=== PATIENT | male | born 1945 | race Caucasian/White ===

== ENCOUNTER 2019-05-16 17:22 | Inpatient (IN) ==
[2019-05-16 18:46] LABS: iSTAT Creatinine 1.3 mg/dl (0.6-1.3); iSTAT Hemoglobin 13.6 g/dl (14.0-18.0); iSTAT Ionized Calcium 1.13 mmol/l (1.12-1.32); iSTAT Potassium 3.8 mEq/L (3.3-5.0)
[2019-05-16 18:50] LABS: Basophils # (auto) 0.06 K/uL (0-0.2); Basophils % (auto) 0.5 %; Eosinophils # (auto) 0.25 K/uL (0-0.5); Eosinophils % (auto) 2.2 %; Hematocrit (blood only) 41.6 % (42-52); Hemoglobin 14.4 g/dL (14.0-18.0); Immature Granulocytes # (auto) 0.03 K/uL (0.00-0.02); Immature Granulocytes % (auto) 0.3 %; Lymphocytes # (auto) 2.29 K/uL (1.2-3.4); Lymphocytes % (auto) 20.2 %; Mean Corpuscular Hgb Conc 34.6 g/dL (32-36); Mean Corpuscular Volume 95.2 fL (80-100); Mean Platelet Volume 11.4 fL (7.4-10.4); Monocytes # (auto) 0.72 K/uL (0.11-0.59); Monocytes % (auto) 6.3 %; Neutrophils % (auto) 70.5 %; Platelet Count 169 K/uL (130-400); RDW Coefficient of Variation 13.9 % (11.5-14.5); RDW Standard Deviation 48.2 fL (36.4-46.3); Red Blood Count 4.37 M/uL (4.7-6.1); White Blood Count 11.35 K/uL (4.8-10.8)
[2019-05-16 19:02] LABS: INR 1.1 (0.9-1.1); Partial Thromboplastin Ratio 1.1; Partial Thromboplastin Time 29.6 Seconds (21.0-31.0); Prothrombin Time 11.4 Seconds (9.0-12.0)
[2019-05-16] MEDS ORDERED: IOVERSOL 100ml IV PRN (19:11)
[2019-05-16 19:37] LABS: Albumin Level 3.7 gm/dl (3.4-5.0); BUN Creatinine Ratio 19.9 (10-20); Calcium 8.8 mg/dl (8.5-10.1); Est GFR (African American) 69.1; Est GFR (Non-African American) 59.6; Potassium 3.8 mmol/L (3.5-5.1)
[2019-05-16 19:40] LABS: Albumin Globulin Ratio 1.2 (0.9-2); Bilirubin,Total 0.4 mg/dl (0.2-1); Globulin 3.1 gm/dl (2.5-4.0); Total Protein 6.8 gm/dl (6.4-8.2)
--- NOTE | 2019-05-16 19:40 | CT Scan Report ---
ABDOMEN AND PELVIS CT WITH IV CONTRAST CT DOSE: 494.94 mGy.cm HISTORY: Acute bloody stool. Pt c/o gi bleed TECHNIQUE: Multiaxial CT images of the abdomen and pelvis were performed following the IV administrat ion of 93 cc of Optiray 320, A dose lowering technique was utilized adhering to the principles of AL BUFFY. COMPARISON STUDY: CT abdomen and pelvis 06/04/2015 FINDINGS: 10 mm right lower lobe and 6 mm left lower lobe solid pulmonary nodules appear unchanged from the 201 5 study suggestive of benign etiology. Minimal dependent subsegmental bibasilar atelectasis. No pneum atosis or pneumoperitoneum. The imaged inferior cardiac chambers are mildly enlarged. Mildly contract ed gallbladder. 6 mm hypodense lesion of the hepatic dome is unchanged, suggestive of benign etiology . There are a few additional hypodense subcentimeter foci of the right hepatic lobe which are also weinberg ggestive of probable benign etiology. Patency of the hepatic and portal veins. Spleen, and pancreas a ppear unremarkable. Thickening of the adrenal glands, left greater than right suggest hyperplasia. Hypodense foci of the bilateral kidneys suggestive of cysts. There is mild layering calcification wit hin a large cyst of the superior pole left kidney. Punctate nonobstructing calculus of the superior p ole left kidney. There are a few punctate nonobstructing calculi of the right kidney with a 4 mm calc ulus of the inferior pole. No definite ureteral calculi or obstructive uropathy. Partially decompress ed urinary bladder with wall thickening. Prostamegaly. Small fat filled right inguinal hernia. Surgic al clips are noted about the upper scrotum with suggestion of bilateral small hydroceles. Mixed plaqu e of the abdominal aorta without aneurysm. No adenopathy. There is no bowel obstruction or bowel wall thickening identified. Colonic diverticulosis without acu te diverticulitis. Noninflamed appendix. No ascites or mesenteric inflammation. Small fat filled maral umbilical hernia, diastases of 1.5 cm. Soft tissues are unremarkable. Bones appear intact. Degenerati ve changes of the spine, pelvis and hips. IMPRESSION: 1. No acute intra-abdominal or intrapelvic abnormality. 2. Colonic diverticulosis without acute diverticulitis. 3. Normal appendix. 4. Nonobstructing bilateral nephrolithiasis. 5. Additional findings as above. Electronically signed by: Quintin Torres M.D. 05/16/2019 7:38 PM
[2019-05-16] MEDS ORDERED: AMOXICILLIN/CLAVULANATE 875 MG TAB PO ONE (19:48)
[2019-05-16 20:31] LABS: Appearance Urine Clear (Clear); Bilirubin Urine Negative (Negative); Blood Urine Negative (Negative); Color Urine Yellow; Glucose Urine UA Negative (Negative); Ketones Urine Negative (Negative); Leukocyte Esterase Urine Negative (Negative); Nitrite Urine Negative (Negative); Protein Urine Negative (Negative); Specific Gravity Urine 1.038 (1.000-1.030); Urobilinogen Urine Negative (Negative); pH Urine 5.5 (4.5-7.5)
--- NOTE | 2019-05-16 20:37 | History & Physical Report ---
Date of Service May 16, 2019 Assessment & Plan (1) Bright red blood per rectum: Admitted with a 2 days history of lower abdominal discomfort/pain With diarrhea and bright red rectal bleed this afternoon Rectal exam did show bright blood as well CT of the abdomen and pelvis did show diverticulosis but no evidence of diverticulitis The bleeding could be from diverticular bleed/ischemic colitis He had a colonoscopy done in 2017 which showed 8 mm polyp in descending colon which was removed We will monitor H&H Intravenous fluid GI consult (2) Acute diverticulitis: Complaint to have pain in the lower quadrants for the last 2 days which is colicky in nature No fever and/or chills White count is minimally elevated We will check for leg CT scan did not show definitive diverticulitis Given the history will start with intravenous Cipro and Flagyl(Unasyn is not available) (3) Ischemic colitis: History does not suggest acute ischemic colitis Peripheral pulses were palpable but feeble the lower extremities No history of peripheral vascular disease We will monitor (4) Hypertension: Blood pressure seems to be in the upper side Continue current medication for blood pressure Has sleep apnea Can use his own CPAP DVT prophylaxis SCDs Hold aspirin CODE STATUS Full History of Present Illness Chief Complaint: Diarrhea with fresh red rectal bleed this afternoon Primary Care Provider: Laverne Rodriguez DO Is a 73-year-old male with significant past medical history of centrilobular eczema, hyperlipidemia, anxiety, hypertension, BERNARDO on CPAP and cerebral atherosclerosis has been complaining of abdominal discomfort/pain involving the lower abdomen for the last 2 days. The pain seems to be colicky in nature and can last up to minutes to hours. He has had his bowel movement this afternoon and noted to have fresh blood with that bowel movement. He has been having bowel movements about 2-3 times a day. He denies any fever and/or chills, any nausea and/or vomiting. He denies any problem with urine. He does not have any cough, phlegm, shortness of breath or chest pain. No history of numbness or tingling or any weakness involving any side of the body. CAT scan of the abdomen and pelvis did not show any acute diverticulitis but given the presentation he was admitted with possible diverticulitis/ischemic colitis/diverticular bleed to medical floor. Allergies Allergy/AdvReac Type Severity Reaction Status Date / Time No Known Allergies Allergy Unverified 03/11/18 15:53 Home Medications Home Medications Medication Instructions Recorded Confirmed Type aspirin [Aspir-81] 81 mg PO DAILY 03/11/18 05/16/19 History cholecalciferol (vitamin D3) 400 unit PO DAILY 03/11/18 05/16/19 History [Vitamin D3] lactobacillus combination no.4 0 mmu cells PO DAILY 03/11/18 05/16/19 History [Probiotic] loratadine 10 mg PO DAILY 03/11/18 05/16/19 History lorazepam 0.25 mg PO TID PRN 03/11/18 05/16/19 History metoprolol succinate [Toprol XL] 50 mg PO DAILY 03/11/18 05/16/19 History multivitamin with minerals 1 tab PO DAILY 03/11/18 05/16/19 History [Multiple Vitamin-Minerals] potassium chloride 20 meq PO BID 03/11/18 05/16/19 History amlodipine 5 mg PO DAILY 05/16/19 05/16/19 History benazepril 40 mg PO DAILY 05/16/19 05/16/19 History bupropion HCl 150 mg PO DAILY 05/16/19 05/16/19 History gabapentin 100 mg PO TID 05/16/19 05/16/19 History umeclidinium-vilanterol [Anoro 1 inh INHALATION DAILY 05/16/19 05/16/19 History Ellipta] Past Med/Surg History Medical History (Updated 05/16/19 @ 20:33 by Terrance Carreno MD) Centrilobular emphysema Hematuria (Acute) Hypertension (Chronic) Hypokalemia (Acute) Post-nasal drip (Chronic) Renal colic (Acute) Sleep apnea (Chronic) Social History Feels Safe at Home: Yes Smoking Status: Current every day smoker Review of Systems Review of Systems: All systems reviewed & are unremarkable except as noted in HPI & below Physical Exam Physical Exam: Lying in bed comfortably Constitutional: well developed and well nourished; no acute distress and not ill appearing Eyes: PERRL, conjunctivae normal, anicteric sclerae ENMT: external ear and nose normal, oropharynx normal Neck: trachea midline, no thyromegaly Respiratory: normal respiratory effort; no respiratory distress Auscultation: + diminished lung sounds (Otherwise clear) Cardiovascular: Rate/Rhythm: regular rate and regular rhythm Heart Sounds: no murmur Gastrointestinal (Abdomen): Inspection/Auscultation: abdomen normal to inspection and normal bowel sounds Percussion/Palpation: + abdomen tender (Minimal tenderness on deep palpation left lower quadrant without guarding and/or rigidity) and abdomen soft Musculoskeletal: No acute arthritis involving any joints Lymphatic: no cervical or axillary lymphadenopathy Results & Data Vital Signs (Past 12 Hours) Vital Signs Temp Pulse Pulse Resp BP BP Pulse Ox 05/16/19 20:23 66 18 167/87 H 96 05/16/19 19:00 66 28 H 147/71 H 05/16/19 18:30 66 21 143/81 H 05/16/19 18:17 68 15 148/82 H 05/16/19 17:31 36.8 C 67 18 129/75 97 Laboratory Results Short CBC 05/16/19 Range/Units 18:29 WBC 11.35 H (4.8-10.8) K/uL Hgb 14.4 (14.0-18.0) g/dL Hct 41.6 L (42-52) % Plt Count 169 (130-400) K/uL BMP 05/16/19 18:29 Sodium 143 Potassium 3.8 Chloride 112 H Carbon Dioxide 27 BUN 24 H Creatinine 1.20 Glucose 98 Calcium 8.8 Liver Function 05/16/19 Range/Units 18:29 Total Bilirubin 0.4 (0.2-1) mg/dl AST 13 L (15-37) U/L ALT 23 (12-78) U/L Alkaline Phosphatase 74 (45-117) U/L Albumin 3.7 (3.4-5.0) gm/dl Medications Administered Current Inpatient Medications Ioversol (Optiray 320 100ml) 93 ml IV ONCE PRN PRN Reason: Interaction Checking Stop: 05/20/19 19:10 Last Admin: 05/16/19 19:11 Dose: 93 ml Documented by: Code Status & VTE Plan VTE Prophylaxis Plan VTE Prophylaxis will be ordered: Yes
--- NOTE | 2019-05-16 21:15 | Emergency Department Note ---
Entered by Mary Harman acting as a scribe for History of Present Illness General Chief complaint: Diarrhea Stated complaint: DIARRHEA, BLOOD IN STOOL Time Seen by Provider: 05/16/19 18:03 History of Present Illness Provider complaint: rectal bleeding Onset (ago): hour(s) 1 Pain Consistency: + other (episode) Quality: + other (rectal bleeding) Associated symptoms: + other (watery diarrhea with bright red blood and dark red blood clots in it, mild cramps, 2 other spells of diarrhea this morning but there was no blood, history of colonoscopy) Treatments prior to arrival: none The patient is a 73 year old male who presents to the ED with complaints of an episode of rectal bleeding that occurred 1 hour ago. The patient describes this episode as extremely watery diarrhea that had bright red blood and dark red blood clots in it. The patient states that this has never happened before. The patient notes that he has been having some mild abdominal cramping as well. The patient notes that he had 2 other spells of diarrhea this morning but they were not bloody. The patient states that he has had a colonoscopy in the past. The patient denies receiving any treatments prior to arrival. Home Medications Home Medications Medication Instructions Recorded Confirmed Type aspirin [Aspir-81] 81 mg PO DAILY 03/11/18 05/16/19 History cholecalciferol (vitamin D3) 400 unit PO DAILY 03/11/18 05/16/19 History [Vitamin D3] lactobacillus combination no.4 0 mmu cells PO DAILY 03/11/18 05/16/19 History [Probiotic] loratadine 10 mg PO DAILY 03/11/18 05/16/19 History lorazepam 0.25 mg PO TID PRN 03/11/18 05/16/19 History metoprolol succinate [Toprol XL] 50 mg PO DAILY 03/11/18 05/16/19 History multivitamin with minerals 1 tab PO DAILY 03/11/18 05/16/19 History [Multiple Vitamin-Minerals] potassium chloride 20 meq PO BID 03/11/18 05/16/19 History amlodipine 5 mg PO DAILY 05/16/19 05/16/19 History benazepril 40 mg PO DAILY 05/16/19 05/16/19 History bupropion HCl 150 mg PO DAILY 05/16/19 05/16/19 History gabapentin 100 mg PO TID 05/16/19 05/16/19 History umeclidinium-vilanterol [Anoro 1 inh INHALATION DAILY 05/16/19 05/16/19 History Ellipta] Allergies Allergy/AdvReac Type Severity Reaction Status Date / Time No Known Allergies Allergy Unverified 03/11/18 15:53 Past Med/Surg History Medical History (Updated 05/17/19 @ 01:25 by Evan Pichardo MD) Centrilobular emphysema Hematuria (Acute) Hypertension (Chronic) Hypokalemia (Acute) Post-nasal drip (Chronic) Renal colic (Acute) Sleep apnea (Chronic) Social History Preferred Language: Gu[place]ian Communication Ability: Effective Coding Assistant Required: No Beliefs That Will Affect Care: None Current Living Situation: Spouse Feels Safe at Home: Yes Safety Concerns: Feels Safe At This Time Smoking Status: Current every day smoker Tobacco Type: cigarettes ; Cigarettes Per Day: 8 ; Do You Dip or Chew Tobacco: No ; Hx Alcohol Use: No Hx Substance Use: No Review of Systems See HPI for pertinent positives & negatives. and A total of 10 systems reviewed and were otherwise negative Physical Exam Vital Signs Vital Signs - 24 hr 05/16/19 17:31 05/16/19 18:17 05/16/19 18:30 Temperature 36.8 C Temperature Source Oral Pulse Rate 67 68 66 Respiratory Rate 18 15 21 Respiratory Effort / Characteristics Non-Labored Respiratory Depth Normal Respiratory Pattern Regular Blood Pressure 129/75 148/82 H 143/81 H Blood Pressure Mean 93 98 107 Pulse Oximetry 97 Oxygen Delivery Method Room Air Sepsis Recent Fever Within 48 Hours No Sepsis Action Taken by Nursing No Action Required 05/16/19 19:00 Temperature Temperature Source Pulse Rate 66 Respiratory Rate 28 H Respiratory Effort / Characteristics Respiratory Depth Respiratory Pattern Blood Pressure 147/71 H Blood Pressure Mean 81 Pulse Oximetry Oxygen Delivery Method Sepsis Recent Fever Within 48 Hours Sepsis Action Taken by Nursing GENERAL: Awake, alert, well-appearing, in no acute distress HENT: Normocephalic, atraumatic. Oropharynx unremarkable. EYES: Normal conjunctiva. Sclera non-icteric. NECK: Supple. No nuchal rigidity. FROM. No JVD. RESPIRATORY: Clear to auscultation. CARDIAC: Regular rate, normal rhythm. Extremities warm and well perfused. Pulses equal. ABDOMEN: Soft, non-distended. No tenderness to palpation. No rebound or guarding. No masses. RECTAL: Dark red rectal exam, heme positive. MUSCULOSKELETAL: Chest examination reveals no tenderness. The back is symmetrical on inspection without obvious abnormality. There is no CVA tenderness to palpation. No joint edema. LOWER EXTREMITIES: Calves are equal size bilaterally and non-tender. No edema. No discoloration. NEURO: Normal sensorium. No sensory or motor deficits noted. SKIN: No rash or jaundice noted. Course Course 1815: Past medical records reviewed. The patient was evaluated in room C02B. A complete history and physical exam was performed. 195: I discussed the patient's case with Dr. Juan Carlos Rubin. He will evaluate the patient for further management. Consultations Consultation #1: I discussed the patient's case with Dr. Juan Carlos Rubin. He will evaluate the patient for further management. Time: 19:54 Administered Medications Gabapentin (Neurontin) 100 mg PO TID MARILUZ Stop: 06/15/19 21:52 Last Admin: 05/16/19 22:44 Dose: 100 mg Documented by: [id number] Sodium Chloride (Nss 1000ml) 1,000 mls @ 125 mls/hr IV .Q8H MARILUZ Stop: 05/17/19 21:44 Last Admin: 05/16/19 22:16 Dose: 125 mls/hr Documented by: [id number] Ciprofloxacin (Cipro) 400 mg in 200 mls @ 100 mls/hr IV Q12H MARILUZ; Protocol Stop: 05/26/19 21:59 Last Infusion: 05/17/19 00:40 Dose: 0 mls/hr Documented by: [id number] Admin: 05/16/19 22:36 Dose: 100 mls/hr Documented by: [id number] Metronidazole (Flagyl) 500 mg in 100 mls @ 100 mls/hr IV Q8H MARILUZ Stop: 05/26/19 21:59 Last Infusion: 05/16/19 23:55 Dose: 0 mls/hr Documented by: [id number] Admin: 05/16/19 22:47 Dose: 100 mls/hr Documented by: [id number] Ioversol (Optiray 320 100ml) 93 ml IV ONCE PRN PRN Reason: Interaction Checking Stop: 05/20/19 19:10 Last Admin: 05/16/19 19:11 Dose: 93 ml Documented by: [id number] Miscellaneous (Order Awaiting Action) 1 ea N/A QS MARILUZ Stop: 06/16/19 00:00 Last Admin: 05/16/19 23:56 Dose: Not Given Documented by: [id number] Potassium Chloride (Klor-Con M20) 20 meq PO BID MARILUZ Stop: 06/15/19 21:52 Last Admin: 05/16/19 22:44 Dose: 20 meq Documented by: [id number] Discontinued Medications Amoxicillin/Clavulanate Potassium (Augmentin 875mg) 1 tab PO NOW ONE Stop: 05/16/19 19:49 Last Admin: 05/16/19 20:24 Dose: 1 tab Documented by: [id number] Medical Decision Making Differential Diagnosis Differential diagnosis: Etiologies such as esophagitis, variceal bleed, [place], [place] tear, gastritis, peptic ulcer disease, AVM, inflammatory bowel disease, ischemia, d iverticulosis, colitis, malignancy, coagulopathy, thrombocytopenia, fissure, hemorrhoid, epistaxis , as well as others were entertained. Medical Records Attestation: I reviewed the patient's medical records. Home Medications Current Medication List: was personally reviewed by me Laboratory Data Attestation: I reviewed the patient's lab results. Result diagrams: 05/16/19 18:29 05/16/19 18:29 Lab Results 05/16/19 05/16/19 05/16/19 Range/Units 18:29 18:29 18:29 WBC 11.35 H (4.8-10.8) K/uL RBC 4.37 L (4.7-6.1) M/uL Hgb 14.4 (14.0-18.0) g/dL POC Hgb (14.0-18.0) g/dl Hct 41.6 L (42-52) % POC Hct (42-52) % MCV 95.2 (80-100) fL MCH 33.0 (25-34) pg MCHC 34.6 (32-36) g/dL RDW Std Deviation 48.2 H (36.4-46.3) fL RDW Coeff of [place] 13.9 (11.5-14.5) % Plt Count 169 (130-400) K/uL MPV 11.4 H (7.4-10.4) fL Immature Gran % (Auto) 0.3 % Neut % (Auto) 70.5 % Lymph % (Auto) 20.2 % [place] % (Auto) 6.3 % Eos % (Auto) 2.2 % Baso % (Auto) 0.5 % Immature Gran # (Auto) 0.03 H (0.00-0.02) K/uL Neut # (Auto) 8.00 H (1.4-6.5) K/uL Lymph # (Auto) 2.29 (1.2-3.4) K/uL [place] # (Auto) 0.72 H (0.11-0.59) K/uL Eos # (Auto) 0.25 (0-0.5) K/uL Baso # (Auto) 0.06 (0-0.2) K/uL PT 11.4 (9.0-12.0) Seconds INR 1.1 (0.9-1.1) APTT 29.6 (21.0-31.0) Seconds PTT Ratio 1.1 POC Sodium (135-144) mEq/L Sodium 143 (136-145) mmol/L POC Potassium (3.3-5.0) mEq/L Potassium 3.8 (3.5-5.1) mmol/L POC Chloride (101-112) mEq/L Chloride 112 H (98-107) mmol/L Carbon Dioxide 27 (21-32) mmol/L POC Total CO2 (24-31) mEq/l Anion Gap 4.0 (3-11) POC Anion Gap (16-25) mmol/L POC BUN (7-18) mg/dl BUN 24 H (7-18) mg/dl Creatinine 1.20 (0.6-1.4) mg/dl POC Creatinine (0.6-1.3) mg/dl Est Cr Clr Drug Dosing 53.0 ml/min Est GFR ( Amer) 69.1 Est GFR (Non-Af Amer) 59.6 BUN/Creatinine Ratio 19.9 (10-20) Glucose 98 (70-99) mg/dl POC Glucose (other) (70-99) mg/dl Calcium 8.8 (8.5-10.1) mg/dl POC Ioniz Calcium Diana (1.12-1.32) mmol/l Total Bilirubin 0.4 (0.2-1) mg/dl AST 13 L (15-37) U/L ALT 23 (12-78) U/L Alkaline Phosphatase 74 (45-117) U/L Total Protein 6.8 (6.4-8.2) gm/dl Albumin 3.7 (3.4-5.0) gm/dl Globulin 3.1 (2.5-4.0) gm/dl Albumin/Globulin Ratio 1.2 (0.9-2) Lipase 133 (73-393) U/L Urine Color Urine Appearance (Clear) Urine pH (4.5-7.5) Ur Specific [place] (1.000-1.030) Urine Protein (Negative) Urine Glucose (UA) (Negative) Urine Ketones (Negative) Urine Blood (Negative) Urine Nitrite (Negative) Urine Bilirubin (Negative) Urine Urobilinogen (Negative) Ur Leukocyte Esterase (Negative) Blood Type Antibody Screen 05/16/19 05/16/19 05/16/19 Range/Units 18:29 18:34 20:15 WBC (4.8-10.8) K/uL RBC (4.7-6.1) M/uL Hgb (14.0-18.0) g/dL POC Hgb 13.6 L (14.0-18.0) g/dl Hct (42-52) % POC Hct 40 L (42-52) % MCV (80-100) fL MCH (25-34) pg MCHC (32-36) g/dL RDW Std Deviation (36.4-46.3) fL RDW Coeff of [place] (11.5-14.5) % Plt Count (130-400) K/uL MPV (7.4-10.4) fL Immature Gran % (Auto) % Neut % (Auto) % Lymph % (Auto) % [place] % (Auto) % Eos % (Auto) % Baso % (Auto) % Immature Gran # (Auto) (0.00-0.02) K/uL Neut # (Auto) (1.4-6.5) K/uL Lymph # (Auto) (1.2-3.4) K/uL [place] # (Auto) (0.11-0.59) K/uL Eos # (Auto) (0-0.5) K/uL Baso # (Auto) (0-0.2) K/uL PT (9.0-12.0) Seconds INR (0.9-1.1) APTT (21.0-31.0) Seconds PTT Ratio POC Sodium 143 (135-144) mEq/L Sodium (136-145) mmol/L POC Potassium 3.8 (3.3-5.0) mEq/L Potassium (3.5-5.1) mmol/L POC Chloride 108 (101-112) mEq/L Chloride (98-107) mmol/L Carbon Dioxide (21-32) mmol/L POC Total CO2 26 (24-31) mEq/l Anion Gap (3-11) POC Anion Gap 13.0 L (16-25) mmol/L POC BUN 29 H (7-18) mg/dl BUN (7-18) mg/dl Creatinine (0.6-1.4) mg/dl POC Creatinine 1.3 (0.6-1.3) mg/dl Est Cr Clr Drug Dosing ml/min Est GFR ( Amer) Est GFR (Non-Af Amer) BUN/Creatinine Ratio (10-20) Glucose (70-99) mg/dl POC Glucose (other) 95 (70-99) mg/dl Calcium (8.5-10.1) mg/dl POC Ioniz Calcium Diana 1.13 (1.12-1.32) mmol/l Total Bilirubin (0.2-1) mg/dl AST (15-37) U/L ALT (12-78) U/L Alkaline Phosphatase (45-117) U/L Total Protein (6.4-8.2) gm/dl Albumin (3.4-5.0) gm/dl Globulin (2.5-4.0) gm/dl Albumin/Globulin Ratio (0.9-2) Lipase (73-393) U/L Urine Color Yellow Urine Appearance Clear (Clear) Urine pH 5.5 (4.5-7.5) Ur Specific [place] 1.038 H (1.000-1.030) Urine Protein Negative (Negative) Urine Glucose (UA) Negative (Negative) Urine Ketones Negative (Negative) Urine Blood Negative (Negative) Urine Nitrite Negative (Negative) Urine Bilirubin Negative (Negative) Urine Urobilinogen Negative (Negative) Ur Leukocyte Esterase Negative (Negative) Blood Type A Positive Antibody Screen NEGATIVE Imaging Data Radiologist's Impression: Radiology results as stated below per my review and the radiologist's interpretation: ABDOMEN AND PELVIS CT WITH IV CONTRAST CT DOSE: 494.94 mGy.cm HISTORY: Acute bloody stool. Pt c/o gi bleed TECHNIQUE: Multiaxial CT images of the abdomen and pelvis were performed following the IV administration of 93 cc of Optiray 320, A dose lowering technique was utilized adhering to the principles of ALARA. COMPARISON STUDY: CT abdomen and pelvis 06/04/2015 FINDINGS: 10 mm right lower lobe and 6 mm left lower lobe solid pulmonary nodules appear unchanged from the 2015 study suggestive of benign etiology. Minimal dependent subsegmental bibasilar atelectasis. No pneumatosis or pneumoperitoneum. The im aged inferior cardiac chambers are mildly enlarged. Mildly contracted gallbladder. 6 mm hypodense lesion of the hepatic dome is unchanged, suggestive of benign etiology. There are a few additional hypodense subcentimeter foci of the right hepatic lobe which are also suggestive of probable benign etiology. Patency of the hepatic and portal veins. Spleen, and pancreas appear unremarkable. Thickening of the adrenal glands, left greater than right suggest hyperplasia. Hypodense foci of the bilateral kidneys suggestive of cysts. There is mild layering calcification within a large cyst of the superior pole left kidney. Punctate nonobstructing calculus of the superior pole left kidney. There are a few punctate nonobstructing calculi of the right kidney with a 4 mm calculus of the inferior pole. No definite ureteral calculi or obstructive uropathy. Partially decompressed urinary bladder with wall thickening. Prostamegaly. Small fat filled right inguinal hernia. Surgical clips are noted about the upper scrotum with suggestion of bilateral small hydroceles. Mixed plaque of the abdominal aorta without aneurysm. No adenopathy. There is no bowel obstruction or bowel wall thickening identified. Colonic diverticulosis without acute diverticulitis. Noninflamed appendix. No ascites or mesenteric inflammation. Small fat filled periumbilical hernia, diastases of 1.5 cm. Soft tissues are unremarkable. Bones appear intact. Degenerative changes of the spine, pelvis and hips. IMPRESSION: 1. No acute intra-abdominal or intrapelvic abnormality. 2. Colonic diverticulosis without acute diverticulitis. 3. Normal appendix. 4. Nonobstructing bilateral nephrolithiasis. 5. Additional findings as above. Electronically signed by: Quintin Torres M.D. 05/16/2019 7:38 PM ECG Data Attestation: I personally reviewed and interpreted this ECG as follows: Indication: + abdominal pain Rate (beats per minute): 63 Rhythm: + normal sinus ECG Intervals/blocks: + Right Bundle branch block ECG ST segments: no ST depression and no ST elevation ECG Findings: + Other (normal axis, QTC 448) Blood Pressure Blood Pressure Findings: Elevated blood pressure Blood Pressure Disposition: further management by hospitalist MDM Narrative This is a 73-year-old male who presents emergency department over concerns that he has bright red blood per rectum. The patient has been having left lower quadrant abdominal pain therefore he was sent for CAT scan the abdomen pelvis. His hemoglobin here is stable. CAT scan is showing diverticulosis however the patient does have an elevation in his white blood cell count and I suspect that the patient may be suffering from acute diverticulitis. He was started on Augmentin here in the emergency department. I did discuss the case with the hospitalist service who did agree to admit the patient. Patient was in agreement with the treatment plan. Impression & Plan Hypertension, Bright red blood per rectum, Acute diverticulitis Discharge Plan Visit Data *Final* Discharge Date/Time: 05/16/19 21:18 Chief Complaint: Diarrhea Stated Complaint: DIARRHEA, BLOOD IN STOOL ED Provider: Evan Pichardo Discharge Problem: Hypertension, Bright red blood per rectum, Acute diverticulitis Patient Disposition: Admitted As Inpatient Discharge Instructions Interventions: ED Discharge Assessment Last Done: 05/16/19 21:18 Discharge Problem: Hypertension Qualifiers: Hypertension type: unspecified Qualified Code(s): I10 - Essential (primary) hy pertension The scribe's documentation has been prepared under my direction and personally reviewed by me in its entirety. I confirm that the note above accurately reflects all work, treatment, procedures, and medical decision making performed by me.
[2019-05-16] MEDS ORDERED: LORazepam 0.5 MG TAB PO PRN (21:53)
[2019-05-16] MEDS: SODIUM CHLORIDE 0.9% 1000ML 1,000 ML IV SCH (22:16)
[2019-05-16] MEDS: CIPROFLOXACIN 400 MG/200 ML BAG IV SCH (22:36)
[2019-05-16] MEDS: GABAPENTIN 100 MG CAP PO SCH (22:44)
[2019-05-16] MEDS: POTASSIUM CHLORIDE 20 MEQ TABCR PO SCH (22:44)
[2019-05-16] MEDS: metroNIDAZOLE 500 MG/100 ML BAG IV SCH (22:47)
[2019-05-16] MEDS: ANORO ELLIPTA~ORDER AWAITING ACTION SCH (23:56)
[2019-05-17] MEDS: metroNIDAZOLE 500 MG/100 ML BAG IV SCH ×3 (05:58→21:06)
[2019-05-17] MEDS: SODIUM CHLORIDE 0.9% 1000ML 1,000 ML IV SCH (05:58)
[2019-05-17 07:03] LABS: Basophils # (auto) 0.05 K/uL (0-0.2); Basophils % (auto) 0.5 %; Eosinophils # (auto) 0.23 K/uL (0-0.5); Eosinophils % (auto) 2.1 %; Hematocrit (blood only) 39.2 % (42-52); Hemoglobin 13.2 g/dL (14.0-18.0); Immature Granulocytes # (auto) 0.03 K/uL (0.00-0.02); Immature Granulocytes % (auto) 0.3 %; Lymphocytes # (auto) 1.91 K/uL (1.2-3.4); Lymphocytes % (auto) 17.6 %; Mean Corpuscular Hgb Conc 33.7 g/dL (32-36); Mean Corpuscular Volume 95.1 fL (80-100); Mean Platelet Volume 11.1 fL (7.4-10.4); Monocytes # (auto) 0.85 K/uL (0.11-0.59); Monocytes % (auto) 7.8 %; Neutrophils # (auto) 7.81 K/uL (1.4-6.5); Neutrophils % (auto) 71.7 %; Platelet Count 159 K/uL (130-400); RDW Coefficient of Variation 14.1 % (11.5-14.5); RDW Standard Deviation 48.9 fL (36.4-46.3); Red Blood Count 4.12 M/uL (4.7-6.1); White Blood Count 10.88 K/uL (4.8-10.8)
[2019-05-17] MEDS: ANORO ELLIPTA~ORDER AWAITING ACTION SCH ×2 (07:13→15:32)
[2019-05-17 07:34] LABS: BUN Creatinine Ratio 16.1 (10-20); Calcium 8.1 mg/dl (8.5-10.1); Est GFR (African American) 85.1; Est GFR (Non-African American) 73.4; Potassium 3.5 mmol/L (3.5-5.1)
[2019-05-17] MEDS: GABAPENTIN 100 MG CAP PO SCH ×3 (08:14→21:04)
[2019-05-17] MEDS: METOPROLOL SUCC 50MG EXT REL TAB PO SCH (08:15)
[2019-05-17] MEDS: POTASSIUM CHLORIDE 20 MEQ TABCR PO SCH ×2 (08:15→21:04)
[2019-05-17] MEDS: CHOLECALCIFEROL (VITAMIN D) 400 UNITS TABLET PO SCH (08:15)
[2019-05-17] MEDS: BuPROPion SR 150 MG TABCR PO SCH (08:15)
[2019-05-17] MEDS: AMLODIPINE BESYLATE 5 MG TAB PO SCH (08:15)
[2019-05-17] MEDS: LORATADINE 10 MG TAB PO SCH (08:15)
[2019-05-17] MEDS: ENALAPRIL MALEATE 10 MG TAB PO SCH (08:16)
[2019-05-17] MEDS: CEROVITE ADV FORMULA TAB PO SCH (08:16)
--- NOTE | 2019-05-17 10:07 | Hospitalist Progress Note ---
Date of Service May 17, 2019 Assessment & Plan (1) Bright red blood per rectum: -Admitted on 05/16/19 with a 2 days history of lower abdominal discomfort/pain and with diarrhea and bright red rectal bleed episode -as per admitting hospitalist, the Rectal exam did show bright blood as well -admission CT of the abdomen and pelvis did show diverticulosis but no evidence of diverticulitis -Hemoglobin on admission 14.4 on 05/16/19 -possible Diverticular bleed (2) Acute diverticulitis: (3) Ischemic colitis: -Because of the blood per rectum, differentials that have been considered are Acute Diverticulitis with ischemic diverticulitis consider to be less likely -patient was started on IV fluids and antibiotic of IV ciprofloxacin and IV metronidazole -Hemoglobin on admission 14.4 on 05/16/19; Hemoglobin is 13.6 on 05/17/19 -will stop IV fluids on 05/17/19, advance diet from NPO to Full Liquid diet on 05/17/19, awaiting gastroenterology consult evaluation -FOBT on 05/17/19 is pending -will plan on repeating CBC (4) Hypertension: -continue home dose amlodipine -continue home dose metoprolol -patient takes Benazepril 40 mg daily at home, will continue for now as enalapril 10 mg while in hospital for now -monitor blood pressure off IV fluids -sleep apnea Can use his own CPAP DVT prophylaxis: SCDs CODE STATUS Full Subjective Nurse sent stool sample from this AM. Patient seen and examined with daughter Dilcia Mckinley ([phone]) at bedside. Patient appears comfortable. denies abdominal pain. denies vomiting. no dizziness. no lightheadedness. no chest pain. no shortness of breath. breathing on room air. IV fluids running and IV metronidazole running during time of exam Review of Systems Review of Systems: All systems reviewed & are unremarkable except as noted in HPI & below Physical Exam Constitutional: comfortable Eyes: PERRL, conjunctivae normal, anicteric sclerae EOM intact bilaterally ENMT: external ear and nose normal, oropharynx normal Neck: normal visual inspection Respiratory: normal respiratory effort, lungs clear to auscultation Cardiovascular: Rate/Rhythm: + bradycardic Gastrointestinal (Abdomen): normal bowel sounds, soft, nontender, no hepatosplenomegaly Musculoskeletal: Head/Neck/Chest: normocephalic and head atraumatic Neurologic: PERRL, EOMI, accommodation nl, no face palsy, no dysarthria Psychiatric: A+Ox3, euthymic affect Results & Data Vital Signs (Past 12 Hours) Vital Signs Temp Pulse Pulse Resp BP Pulse Ox 05/17/19 09:00 63 05/17/19 07:00 36.7 C 65 16 158/69 H 97 05/17/19 03:00 36.6 C 66 18 152/64 H 95 05/17/19 00:25 70 05/16/19 22:58 36.5 C 68 18 147/74 H 93 (1) Hypertension Hypertension type: unspecified Qualified Code(s): I10 - Essential (primary) hypertension
[2019-05-17] MEDS ORDERED: ENALAPRIL MALEATE 10 MG TAB PO SCH (10:15)
[2019-05-17] MEDS: CIPROFLOXACIN 400 MG/200 ML BAG IV SCH ×2 (10:54→22:13)
--- NOTE | 2019-05-17 13:49 | Consultation Report ---
DATE OF CONSULTATION: 05/17/2019 REFERRED BY: Dr. Glass. I was asked by Dr. Glass to consult on this gentleman for evaluation of rectal bleeding. HISTORY OF PRESENT ILLNESS: The patient is a 73-year-old who states that yesterday he had the urge to have a bowel movement and went to the bathroom and had a liquidy red bloody stool. He had no associated abdominal pain. After the bowel movement, he had some cramping and because of this, he went to the Emergency Room. This was around 5-6 o'clock last night. He had some testing and was eventually admitted to the hospital. He has not had a bowel movement until this morning since his admission and he had one this morning that was darker maroonish in small volume. He continues to have no abdominal pain, no fevers. He denies any antibiotic use. He denies any recent travel. No one else is sick in his house. He denies ever having these episodes before. He has a history of diverticulosis. He currently feels great and is hoping to be able to eat soon. PAST MEDICAL HISTORY: I reviewed his medical records and his past medical history and his past medical history is significant for sleep apnea, hypertension, hyperlipidemia. OUTPATIENT MEDICATIONS: Include aspirin, numerous vitamins, lorazepam p.r.n., metoprolol, potassium supplement, amlodipine, benazepril, bupropion, gabapentin. SOCIAL HISTORY: Significant for smoking that is current but no significant alcohol use. ALLERGIES: He denies any drug allergies. FAMILY HISTORY: Negative for gastrointestinal disease. REVIEW OF SYSTEMS: As above, otherwise he denies any recent change in vision or hearing. He has had no pruritus, icterus or jaundice. He denies any bruising issues. He has had no fevers or heat or cold intolerance. He denies any chest pain, shortness of breath or productive cough. He has had no palpitations. He denies any dysuria. He has had no joint swelling. He denies any change in mood or seizure history. He has had no polyuria or polydipsia. He denies any new exertional symptoms or shortness of breath. PHYSICAL EXAMINATION: GENERAL: Reveals a pleasant gentleman lying in bed comfortable, in no distress. VITAL SIGNS: Most recent blood pressure is 143/74, pulse is 63, temperature is 36.7 centigrade. SKIN: Anicteric. EYES: Show anicteric sclerae. MOUTH: Clear of lesions with moist mucous membranes. NECK: Supple with no adenopathy. CHEST: Clear. HEART: Regular. ABDOMEN: Benign with good bowel sounds. There is no organomegaly, masses, rebound tenderness noted. EXTREMITIES: Warm, good distal pulses. No edema. NEUROLOGIC: He is alert and oriented x3 and grossly intact. LABORATORY DATA: Show a hemoglobin on admission of 14.4 and after receiving over a liter of fluids his hemoglobin is 13.2. BUN and creatinine are 16 and 1 respectively. Platelets are normal at 159 and CAT scan of the abdomen and pelvis with IV contrast showed colonic diverticulosis, but no signs of diverticulitis and no other sinister GI pathology. IMPRESSION: A 73-year-old gentleman with most likely a self-limited diverticular bleed. Typically ischemic colitis, presents with some degree of cramping and abdominal pain. It is reassuring that his hemoglobin is relatively stable even after hydration. He has only had 1 bowel movement since admission which is a sign that this is not active and ongoing bleeding. I do not think he needs endoscopy at this point. I would start him on a soft diet. I see no reason that he should have any stool cultures checked and I highly doubt this is infectious. If he remained stable overnight, he can be discharged from a GI perspective tomorrow.
[2019-05-17 15:35] LABS: Basophils # (auto) 0.04 K/uL (0-0.2); Basophils % (auto) 0.4 %; Eosinophils # (auto) 0.18 K/uL (0-0.5); Eosinophils % (auto) 1.9 %; Hematocrit (blood only) 37.5 % (42-52); Immature Granulocytes # (auto) 0.02 K/uL (0.00-0.02); Immature Granulocytes % (auto) 0.2 %; Lymphocytes # (auto) 1.39 K/uL (1.2-3.4); Lymphocytes % (auto) 14.5 %; Mean Corpuscular Hemoglobin 33.1 pg (25-34); Mean Corpuscular Volume 95.4 fL (80-100); Mean Platelet Volume 10.6 fL (7.4-10.4); Monocytes # (auto) 0.74 K/uL (0.11-0.59); Monocytes % (auto) 7.7 %; Neutrophils % (auto) 75.3 %; Platelet Count 147 K/uL (130-400); RDW Coefficient of Variation 13.9 % (11.5-14.5); RDW Standard Deviation 48.9 fL (36.4-46.3); Red Blood Count 3.93 M/uL (4.7-6.1); White Blood Count 9.57 K/uL (4.8-10.8)
[2019-05-17 15:52] LABS: Mean Corpuscular Hgb Conc 34.7 g/dL (32-36)
[2019-05-18] MEDS: ANORO ELLIPTA~ORDER AWAITING ACTION SCH ×2 (00:24→07:53)
[2019-05-18] MEDS ORDERED: SODIUM CHLORIDE 0.9% 1000ML 1,000 ML IV SCH (01:30)
[2019-05-18 05:28] LABS: Basophils # (auto) 0.05 K/uL (0-0.2); Basophils % (auto) 0.5 %; Eosinophils # (auto) 0.33 K/uL (0-0.5); Eosinophils % (auto) 3.3 %; Hematocrit (blood only) 37.7 % (42-52); Hemoglobin 13.3 g/dL (14.0-18.0); Immature Granulocytes # (auto) 0.01 K/uL (0.00-0.02); Immature Granulocytes % (auto) 0.1 %; Lymphocytes # (auto) 2.15 K/uL (1.2-3.4); Lymphocytes % (auto) 21.6 %; Mean Corpuscular Hemoglobin 33.3 pg (25-34); Mean Corpuscular Hgb Conc 35.3 g/dL (32-36); Mean Corpuscular Volume 94.5 fL (80-100); Mean Platelet Volume 10.9 fL (7.4-10.4); Monocytes # (auto) 0.87 K/uL (0.11-0.59); Monocytes % (auto) 8.8 %; Neutrophils # (auto) 6.53 K/uL (1.4-6.5); Neutrophils % (auto) 65.7 %; Platelet Count 150 K/uL (130-400); RDW Coefficient of Variation 13.8 % (11.5-14.5); RDW Standard Deviation 47.5 fL (36.4-46.3); Red Blood Count 3.99 M/uL (4.7-6.1); White Blood Count 9.94 K/uL (4.8-10.8)
[2019-05-18] MEDS: metroNIDAZOLE 500 MG/100 ML BAG IV SCH (05:50)
[2019-05-18] MEDS: LORATADINE 10 MG TAB PO SCH (07:54)
[2019-05-18] MEDS: POTASSIUM CHLORIDE 20 MEQ TABCR PO SCH (07:54)
[2019-05-18] MEDS: CEROVITE ADV FORMULA TAB PO SCH (07:54)
[2019-05-18] MEDS: METOPROLOL SUCC 50MG EXT REL TAB PO SCH (07:55)
[2019-05-18] MEDS: BuPROPion SR 150 MG TABCR PO SCH (07:55)
[2019-05-18] MEDS: AMLODIPINE BESYLATE 5 MG TAB PO SCH (07:55)
[2019-05-18] MEDS: CHOLECALCIFEROL (VITAMIN D) 400 UNITS TABLET PO SCH (07:55)
[2019-05-18] MEDS: GABAPENTIN 100 MG CAP PO SCH (07:55)
--- NOTE | 2019-05-18 07:57 | Hospitalist Progress Note ---
Date of Service May 18, 2019 Assessment & Plan (1) Bright red blood per rectum: -Admitted on 05/16/19 with a 2 days history of lower abdominal discomfort/pain and with diarrhea and bright red rectal bleed episode -as per admitting hospitalist, the Rectal exam did show bright blood as well -admission CT of the abdomen and pelvis did show diverticulosis but no evidence of diverticulitis -Hemoglobin on admission 14.4 on 05/16/19 -likely Diverticular bleed (2) Acute diverticulitis: -Complaint to have pain in the lower quadrants for the last 2 days which is colicky in nature on admission No fever and/or chills White count is minimally elevated We will check for leg CT scan did not show definitive diverticulitis Given the history was started with intravenous Cipro and Flagyl while inpatient starting 05/16/19 -patient was evaluated was evaluated by gastroenterology on 05/17/19 and does not consider an infectious cause of rectal bleeding -antibiotics stopped on 05/18/19 (3) Ischemic colitis: -Because of the blood per rectum, differentials that have been considered are Acute Diverticulitis with ischemic diverticulitis consider to be less likely -patient was started on IV fluids and antibiotic of IV ciprofloxacin and IV metronidazole -Fecal occult blood positive 05/17/19 -Hemoglobin on admission 14.4 on 05/16/19; Hemoglobin is 13.6 on 05/17/19, Hemoglobin remains stable above 13 on repeat CBC -as per gastroenterology service that patient likely had a self-limited diverticular bleed rather than ischemic colitis Patient is to be discharged on 05/18/19 with follow up appointment to primary care provider 05/25/2019 9:00 AM Provider Anabel Fitzgerald PA-C Department [facility] Address: [address] [place] [phone] (Patient should have repeat blood count by primary care doctor after 05/16/19 to 05/18/19 hospitalization at [facility] for likely a diverticular bleed. Patient was also evaluated by inpatient [facility] affiliated gastroenterology. Patient should be referred to gastroenterology as outpatient if any further concerns for rectal bleed ) (4) Hypertension: -continue home dose amlodipine -continue home dose metoprolol -patient takes Benazepril 40 mg daily at home, was given as substitute in the hospital as enalapril 40 mg daily, patient should resume Benazepril at home -monitor blood pressure off IV fluids -sleep apnea Can use his own CPAP DVT prophylaxis: SCDs CODE STATUS Full Discharge diagnosis: bright red blood per rectum from Diverticular Bleed, Diverticulosis (Acute Diverticulitis and Ischemic Colitis were suspected differentials but has been clinically ruled out), Hypertension Subjective Patient was denies bowel movements. hemoglobin remains stable above 13. Patient denies acute abdomen pain. No vomiting. No dizziness. No lightheadedness Review of Systems Review of Systems: All systems reviewed & are unremarkable except as noted in HPI & below Physical Exam 2 Constitutional: comfortable Eyes: PERRL, conjunctivae normal, anicteric sclerae EOM intact bilaterally ENMT: external ear and nose normal, oropharynx normal Neck: normal visual inspection Respiratory: normal respiratory effort, lungs clear to auscultation Cardiovascular: Rate/Rhythm: + bradycardic Gastrointestinal (Abdomen): normal bowel sounds, soft, nontender, no hepatosplenomegaly Musculoskeletal: Head/Neck/Chest: normocephalic and head atraumatic Neurologic: PERRL, EOMI, accommodation nl, no face palsy, no dysarthria Psychiatric: A+Ox3, euthymic affect Results & Data Vital Signs (Past 12 Hours) Vital Signs Temp Pulse Pulse Resp BP Pulse Ox 05/18/19 07:26 58 L 05/18/19 07:23 36.4 C L 65 20 159/79 H 97 05/18/19 03:00 36.5 C 61 18 153/75 H 95 05/17/19 23:33 67 05/17/19 22:36 36.8 C 68 18 149/77 H 96 (1) Hypertension Hypertension type: unspecified Qualified Code(s): I10 - Essential (primary) hypertension
--- NOTE | 2019-05-18 08:27 | Discharge Summary ---
Date of Service May 18, 2019 Admission HPI Per Admitting Provider Is a 73-year-old male with significant past medical history of centrilobular eczema, hyperlipidemia, anxiety, hypertension, BERNARDO on CPAP and cerebral atherosclerosis has been complaining of abdominal discomfort/pain involving the lower abdomen for the last 2 days. The pain seems to be colicky in nature and can last up to minutes to hours. He has had his bowel movement this afternoon and noted to have fresh blood with that bowel movement. He has been having bowel movements about 2-3 times a day. He denies any fever and/or chills, any nausea and/or vomiting. He denies any problem with urine. He does not have any cough, phlegm, shortness of breath or chest pain. No history of numbness or tingling or any weakness involving any side of the body. CAT scan of the abdomen and pelvis did not show any acute diverticulitis but given the presentation he was admitted with possible diverticulitis/ischemic colitis/diverticular bleed to medical floor. Admission Exam Per Admitting Provider Physical Exam Physical Exam: Lying in bed comfortably Constitutional: well developed and well nourished; no acute distress and not ill appearing Eyes: PERRL, conjunctivae normal, anicteric sclerae ENMT: external ear and nose normal, oropharynx normal Neck: trachea midline, no thyromegaly Respiratory: normal respiratory effort; no respiratory distress Auscultation: + diminished lung sounds (Otherwise clear) Cardiovascular: Rate/Rhythm: regular rate and regular rhythm Heart Sounds: no murmur Gastrointestinal (Abdomen): Inspection/Auscultation: abdomen normal to inspection and normal bowel sounds Percussion/Palpation: + abdomen tender (Minimal tenderness on deep palpation left lower quadrant without guarding and/or rigidity) and abdomen soft Musculoskeletal: No acute arthritis involving any joints Lymphatic: no cervical or axillary lymphadenopathy Principal Diagnosis bright red blood per rectum from Diverticular Bleed, Diverticulosis (Acute Diverticulitis and Ischemic Colitis were suspected differentials but has been clinically ruled out), Hypertension Discharge Exam Constitutional comfortable Eyes PERRL, conjunctivae normal, anicteric sclerae EOM intact bilaterally ENMT external ear and nose normal, oropharynx normal Neck normal visual inspection Respiratory normal respiratory effort, lungs clear to auscultation Cardiovascular Rate/Rhythm: + bradycardic Gastrointestinal (Abdomen) normal bowel sounds, soft, nontender, no hepatosplenomegaly Musculoskeletal Head/Neck/Chest: normocephalic and head atraumatic Neurologic PERRL, EOMI, accommodation nl, no face palsy, no dysarthria Psychiatric A+Ox3, euthymic affect Discharge Data Allergies Allergy/AdvReac Type Severity Reaction Status Date / Time No Known Allergies Allergy Unverified 03/11/18 15:53 Consultations 05/16/19 20:40 Consult Gastroenterology Routine 05/16/19 21:03 ED Decision to Admit Stat Ordered Studies 05/16/19 18:23 CT abd pelvis IV con only Stat Hospital Course (1) Bright red blood per rectum: -Admitted on 05/16/19 with a 2 days history of lower abdominal disco mfort/pain and with diarrhea and bright red rectal bleed episode -as per admitting hospitalist, the Rectal exam did show bright blood as well -admission CT of the abdomen and pelvis did show diverticulosis but no evidence of diverticulitis -Hemoglobin on admission 14.4 on 05/16/19 -likely Diverticular bleed (2) Acute diverticulitis: -Complaint to have pain in the lower quadrants for the last 2 days which is colicky in nature on admission No fever and/or chills White count is minimally elevated We will check for leg CT scan did not show definitive diverticulitis Given the history was started with intravenous Cipro and Flagyl while inpatient starting 05/16/19 -patient was evaluated was evaluated by gastroenterology on 05/17/19 and does not consider an infectious cause of rectal bleeding -antibiotics stopped on 05/18/19 (3) Ischemic colitis: -Because of the blood per rectum, differentials that have been considered are Acute Diverticulitis with ischemic diverticulitis consider to be less likely -patient was started on IV fluids and antibiotic of IV ciprofloxacin and IV metronidazole -Fecal occult blood positive 05/17/19 -Hemoglobin on admission 14.4 on 05/16/19; Hemoglobin is 13.6 on 05/17/19, Hemoglobin remains stable above 13 on repeat CBC -as per gastroenterology service that patient likely had a self-limited diverticular bleed rather than ischemic colitis Patient is to be discharged on 05/18/19 with follow up appointment to primary care provider 05/25/2019 9:00 AM Provider Anabel Fitzgerald PA-C Department [facility] Address: [address] [place] [address] (Patient should have repeat blood count by primary care doctor after 05/16/19 to 05/18/19 hospitalization at [facility] for likely a diverticular bleed. Patient was also evaluated by inpatient [facility] gastroenterology. Patient should be referred to gastroenterology as outpatient if any further concerns for rectal bleed ) (4) Hypertension: -continue home dose amlodipine -continue home dose metoprolol -patient takes Benazepril 40 mg daily at home, was given as substitute in the hospital as enalapril 40 mg daily, patient should resume Benazepril at home -monitor blood pressure off IV fluids -sleep apnea Can use his own CPAP DVT prophylaxis: SCDs CODE STATUS Full Discharge diagnosis: bright red blood per rectum from Diverticular Bleed, Diverticulosis (Acute Diverticulitis and Ischemic Colitis were suspected differentials but has been clinically ruled out), Hypertension Total Time Total Time Spent Total Time Spent (In Minutes): 40 minutes Total Time Includes: Examination of the Patient, Discharge Planning, Medication Reconciliation and Communication With Other Providers Discharge Plan Discharge Items Patient Disposition: Home - Self-Care Reason For Visit: ACUTE DIVERTICULITIS, DIVERTICULAR BLEED Discharge Diagnosis: bright red blood per rectum from Diverticular Bleed, Diverticulosis (Acute Diverticulitis and Ischemic Colitis were suspected differentials but has been clinically ruled out), Hypertension Condition on Discharge: Good Activity: Resume your previous activity Non-emergency contact: Primary Care Provider Call non-emergency contact if: you have any medication questions Follow-up/Referrals: Laverne Rodriguez DO [Primary Care Provider] - Diet: Regular Diet Comment: encourage soft diet Axel Attending Provider Instructions: 05/25/2019 9:00 AM Provider Anabel Fitzgerald PA-C Department [facility] Address: [address] [place] [address] 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 Patient was also evaluated by inpatient [facility] gastroenterology. Patient should be referred to gastroenterology as outpatient if any further concerns for rectal bleed ) Pending Studies at Discharge: No Stand-Alone Forms: My [facility], Smoking Cessation Medications and DC Order Prescriptions: Continued Probiotic 3 billion cell Capsule 0 mmu cells PO DAILY RF: 0 lorazepam 0.5 mg Tablet 0.25 mg PO TID PRN (Reason: Anxiety) RF: 0 potassium chloride 20 mEq Tablet,Er Particles/Crystals 20 meq PO BID RF: 0 metoprolol succinate [Toprol XL] 50 mg Tablet Extended Release 24 Hr 50 mg PO DAILY RF: 0 multivitamin with minerals [Multiple Vitamin-Minerals] Tablet 1 tab PO DAILY RF: 0 loratadine 10 mg Tablet 10 mg PO DAILY RF: 0 aspirin [Aspir-81] 81 mg Tablet,Delayed Release (Dr/Ec) 81 mg PO DAILY RF: 0 cholecalciferol (vitamin D3) [Vitamin D3] 400 unit Tablet 400 unit PO DAILY RF: 0 benazepril 40 mg tablet 40 mg PO DAILY RF: 0 amlodipine 5 mg tablet 5 mg PO DAILY RF: 0 Anoro Ellipta 62.5-25 mcg/actuation blister with device 1 inh inhalation DAILY RF: 0 gabapentin 100 mg capsule 100 mg PO TID RF: 0 bupropion HCl 150 mg tablet sustained-release 12 hr 150 mg PO DAILY RF: 0 Discharge Orders: Discharge Order (Routine); Ordered 05/18/19 Ordered By: Jasen Ferrera/Other Patient Handouts: Diet Low Residue, Diverticulosis Diverticulitis Admission Data Admit Date/Time: 05/16/19 20:23 Attending Provider: Jasen Glass Admit Provider: Terrance Carreno Primary Care Provider: Laverne Rodriguez Other Providers: Mirna Valadez ; Dorita Cano ; Liyah Guevara ; Fortunato Curran ; Mary Quinones ; Breana Maedra ; Danielle Robbins ; Juan Escamilla ; Yo Chavez ; Susie Cornejo ; Carole Betts ; Maria C Nugent ; Stefani Hughes ; Alice Angela ; Terrance Carreno
[2019-05-18] MEDS: ENALAPRIL MALEATE 10 MG TAB PO SCH (08:33)
== END 2019-05-18 10:33 | disposition home or self-care (01) | DRG 379 ==
LOC: ED 17:22 → 2W 20:23 → SUATTDRO 20:23 → 2W 21:18

== ENCOUNTER 2022-05-07 15:09 | Inpatient (IN) ==
[2022-05-07] MEDS ORDERED: SODIUM CHLORIDE 0.9% 1000ML 1,000 ML IV ONE (15:58)
[2022-05-07 16:00] LABS: Basophils % (auto) 0.9 %; Eosinophils # (auto) 0.14 K/uL (0-0.50); Eosinophils % (auto) 1.2 %; Hematocrit (blood only) 42.1 % (40.1-51.0); Hemoglobin 15.3 g/dl (14.0-18.0); Immature Granulocytes # (auto) 0.05 K/uL (0.00-0.02); Immature Granulocytes % (auto) 0.4 %; Lymphocytes # (auto) 1.48 K/uL (1.2-3.4); Lymphocytes % (auto) 12.8 %; Mean Corpuscular Hemoglobin 32.6 pg (25.0-34.0); Mean Corpuscular Hgb Conc 36.3 g/dL (32.0-36.0); Mean Corpuscular Volume 89.8 fL (80.0-100.0); Mean Platelet Volume 10.9 fL (9.4-12.4); Monocytes # (auto) 0.64 K/uL (0.24-0.82); Monocytes % (auto) 5.5 %; Neutrophils # (auto) 9.17 K/uL (1.4-6.5); Neutrophils % (auto) 79.2 %; Platelet Count 227 K/uL (130-400); RDW Coefficient of Variation 13.3 % (11.5-14.5); RDW Standard Deviation 43.5 fL (36.4-46.3); Red Blood Count 4.69 M/uL (4.63-6.08); White Blood Count 11.58 K/ul (4.8-10.8)
--- NOTE | 2022-05-07 16:01 | Emergency Department Note ---
Impression & Plan Generalized weakness, Acute confusion, Slurred speech, Hypertensive urgency ED Provider Note Name: PÉREZ SEO Age: 76 Sex: M Arrives Via: Walk-In Informant: Patient, family ED Provider: Livan Smith MD Chief Complaint: confusion Impression: As per impressions above Medical Decision Makin-year-old gentleman with a history of hypertension, anxiety, other comorbidities arrives for evaluation of some confusion, slurred speech not acting himself this morning. He actually has had some slurred speech last few mornings per his . He has been treated for a sinus infection over the last 10 days. He was seen at [facility] urgent care who advised to come to the ER for further evaluation given the symptoms. On arrival patient is in no distress he is able to ambulate without difficulty blood pressure is a bit on the high side. He had extensive work-up including CT head and labs are remarkable for mildly elevated creatinine from baseline as well as an elevated troponin of 30. He has no chest pain, shortness of breath or ACS symptoms. I suspect troponin elevation is more likely due to renal as opposed to acute coronary or aortic issue. He has a negative CT head. There is no clear evidence of infectious etiology at this time. Even after some time in the ER blood pressure has not really trended down at all. He was given a dose of IV labetalol too much improvement. He is without headache or neurologic symptoms at this time thus I consulted hospitalist for further management. Without any acute ischemic findings/strokelike findings on examination we will hold off on any further antiplatelet or anticoagulation. [] Prior Medical Record and Triage/Nursing Notes reviewed by Me Additional history obtained from chart & family Differentials:Infection, dehydration, metabolic abnormality, hyp o/hyperglycemia, electrolyte disturbance, anemia, hypoxia, cardiac sources, intracerebral event, toxicologic, neurologic, as well as other pathologies. Vital Signs: reviewed and remarkable for HTN Interventions: labetalol 10mg iv, nss bolus Labs:Reviewed and remarkable for mild cr elevation, mild trop elevation Imaging:ct head wo con no acute findings per radiology EKG:As per my interpretation. Indication hypertension, confusion. Sinus tach at 103 bpm with a bifascicular block. There is no ectopy nor ischemia appreciated. Other than rate similar to EKG from May 16, 2019. Cardiac/Tele Monitoring: Cardiac Monitoring: An Order was placed for continuous cardiac monitoring. The monitor shows a rate of [] with a [normal sinus] rhythm. Consults:Dr Danitza Rodney Hospitalist Plan: Disposition:Hospitalization. Condition: Good History of Present Illness:74-year-old gentleman arrives for evaluation of confusion. Patient has been dealing with a sinus infection for the last 2 weeks and been started on Augmentin a week and a half ago. He is on his last day of antibiotics today. notes that in the mornings the last few days he has had some slurred speech that has been much sleepier than normal. Symptoms seem to come and go. Today though he has been confused all day having trouble remembering things that earlier was unable to even use a cell phone. He was seen over at urgent care who sent him here for further evaluation. Patient states that he feels all right other than a little bit lightheaded with standing. No specific spinning but does feel "dizzy." Denies any falls or head injuries. Denies any nausea, vomiting, chest pain, shortness of breath, syncope, abdominal pain, back pain, urinary/bowel symptoms, leg swelling, bruising or other concerning signs or symptoms. Laying down does seem to make a bit better. He has not had a good appetite recently. ROS: See above HPI for pertinent positives & negatives. A total of 10 systems reviewed and were otherwise negative. Past Medical History:See Below Past Surgical History:See Below Family History:See Below Social History:See Below quit smoking 1 month ago after 50 yrs. Home Medications:See Below Allergies:nkda Vitals:Blood Pressure: 168/99, Pulse 107, RR 18, T 36.3C, O2 96% on RA Physical Exam: GENERAL: Patient is dehydrated/elderly/frail appearing and in minimal distress. EYES: No scleral icterus, unremarkable pupils. ENT: Mucous membranes dry, no nasal congestion. NECK: No masses appreciated, nomeningismus, trachea is midline. RESPIRATORY: No dyspnea. Clear to auscultation and equal bilaterally. No wheeze, no rhonchi. CARDIOVASCULAR: Regular rate and rhythm.No murmurs, rubs, gallops appreciated. GASTROINTESTINAL: Abdomen soft, non-tender, no peritonitis.Bowel sounds po sitive.No masses appreciated. BACK: No midline tenderness, no CVA tenderness EXTREMITIES: Normal motion all extremities, no cyanosis, no edema. NEUROLOGIC: Alert and oriented, no acute motor or sensory deficits, no focal weakness, cranial nerves grossly intact. SKIN: No rash, no jaundice, no diaphoresis. PSYCH: Appropriate GCS: 15 ED Course: Times/Reassessments: Patient without further symptoms stable though blood pressure remains quite high despite labetalol. He and family comfortable with plan for hospitalization for further management Livan Smith MD Past Med/Surg History Medical History Centrilobular emphysema Hematuria Hypertension Hypokalemia Post-nasal drip Renal colic Sleep apnea Social History Smoking Status: Former smoker Cigarettes Per Day: 8; Hx Alcohol Use: No Hx Substance Use: No Preferred Language: Dutch Communication Ability: Effective Roundhouse Supervisor Required: No Beliefs That Will Affect Care: None Current Living Situation: Spouse Feels Safe at Home: Yes Safety Concerns: Feels Safe At This Time Assistive Devices: CPAP Allergies Allergies Allergy/AdvReac Type Severity Reaction Status Date / Time No Known Allergies Allergy Verified 05/07/22 16:31 Home Meds Home Medications Medication Instructions Recorded Confirmed metoprolol succinate 50 mg 50 mg PO QPM 03/11/18 05/07/22 tablet,extended release 24 hr (Toprol XL) multivitamin with minerals 1 tab PO DAILY 03/11/18 05/07/22 (Multiple Vitamin-Minerals tablet) benazepril 40 mg tablet 40 mg PO DAILY 05/16/19 05/07/22 bupropion HCl 150 mg tablet,12 hr 150 mg PO BID 05/16/19 05/07/22 sustained-release gabapentin 100 mg capsule 100 mg PO TID 05/16/19 05/07/22 amiloride 5 mg tablet 5 mg PO QAM 05/07/22 05/07/22 cholecalciferol (vitamin D3) 50 50 mcg PO DAILY 05/07/22 05/07/22 mcg (2,000 unit) capsule (Vitamin D3) cholestyramine (with sugar) 4 gram 1 ea PO BID PRN Diarrhea 05/07/22 05/07/22 powder for susp in a packet fluticasone fur. 100 mcg-umeclid 1 inh inhalation DAILY 05/07/22 05/07/22 62.5 mcg-vilant 25 mcg inhalat.powder (Trelegy Ellipta) fluticasone propionate 50 2 spray intranasal QPM 05/07/22 05/07/22 mcg/actuation nasal spray,suspension lorazepam 0.5 mg tablet 0.5 mg PO TID PRN Panic Attack(S) 05/07/22 05/07/22 Results & Data (ED) Vital Signs Vital Signs - 24 hr 05/07/22 18:31 05/07/22 18:31 Pulse Rate 98 H Respiratory Rate 16 Blood Pressure 180/135 H Blood Pressure Mean 150 Laboratory Data Result diagrams: 05/08/22 07:28 05/08/22 07:28 Lab Results 05/07/22 05/07/22 05/07/22 Range/Units 15:39 15:39 15:39 WBC 11.58 H (4.8-10.8) K/ul RBC 4.69 (4.63-6.08) M/uL Hgb 15.3 (14.0-18.0) g/dl Hct 42.1 (40.1-51.0) % MCV 89.8 (80.0-100.0) fL MCH 32.6 (25.0-34.0) pg MCHC 36.3 H (32.0-36.0) g/dL RDW Std Deviation 43.5 (36.4-46.3) fL RDW Coeff of Arben 13.3 (11.5-14.5) % Plt Count 227 (130-400) K/uL MPV 10.9 (9.4-12.4) fL Immature Gran % (Auto) 0.4 % Neut % (Auto) 79.2 % Lymph % (Auto) 12.8 % Hitchcock % (Auto) 5.5 % Eos % (Auto) 1.2 % Baso % (Auto) 0.9 % Neut # (Auto) 9.17 H (1.4-6.5) K/uL Lymph # (Auto) 1.48 (1.2-3.4) K/uL Hitchcock # (Auto) 0.64 (0.24-0.82) K/uL Eos # (Auto) 0.14 (0-0.50) K/uL Baso # (Auto) 0.10 (0-0.2) K/uL Immature Gran # (Auto) 0.05 H (0.00-0.02) K/uL Sodium 142 (136-145) mmol/L Potassium 3.9 (3.5-5.1) mmol/L Chloride 108 H (98-107) mmol/L Carbon Dioxide 23 (21-32) mmol/L Anion Gap 11 (3-11) BUN 30 H (6-23) mg/dl Creatinine 1.90 H (0.6-1.4) mg/dl Est Cr Clr Drug Dosing 32.0 ml/min Est GFR ( Amer) 38.8 ml/min Est GFR (Non-Af Amer) 33.5 ml/min BUN/Creatinine Ratio 15.8 (10-20) Glucose 119 H (70-99(Fasting)) mg/dl Calcium 9.7 (8.5-10.1) mg/dl Total Bilirubin 0.9 (0.2-1.0) mg/dl AST 16 (13-39) U/L ALT 14 (7-52) U/L Alkaline Phosphatase 85 (34-104) U/L Troponin I High Sens (0-20) pg/ml Total Protein 7.3 (6.0-8.3) gm/dl Albumin 4.3 (3.4-5.0) gm/dl Globulin 3.0 (2.5-4.0) gm/dl Albumin/Globulin Ratio 1.4 (0.9-2) Procalcitonin (0-0.5) ng/ml Urine Color Urine Appearance (Clear) Urine pH (4.5-7.5) Ur Specific Gloster (1.000-1.030) Urine Protein (Negative) Urine Glucose (UA) (Negative) Urine Ketones (Negative) Urine Blood (Negative) Urine Nitrite (Negative) Urine Bilirubin (Negative) Urine Urobilinogen (Negative) Ur Leukocyte Esterase (Negative) Urine WBC (Auto) (0-5) /hpf Urine RBC (Auto) (0-4) /hpf U Hyaline Cast (Auto) (0-5) /lpf U Epithel Cells (Auto) (0-5) /lpf Urine Bacteria (Auto) (Negative) SARS-CoV-2 (PCR) NEGATIVE (Negative) Influenza Type A (PCR) Negative (Neg) Influenza Type B (PCR) Negative (Neg) RSV (RT-PCR) Negative (Neg) 05/07/22 05/07/22 05/07/22 Range/Units 15:39 15:39 16:54 WBC (4.8-10.8) K/ul RBC (4.63-6.08) M/uL Hgb (14.0-18.0) g/dl Hct (40.1-51.0) % MCV (80.0-100.0) fL MCH (25.0-34.0) pg MCHC (32.0-36.0) g/dL RDW Std Deviation (36.4-46.3) fL RDW Coeff of Arben (11.5-14.5) % Plt Count (130-400) K/uL MPV (9.4-12.4) fL Immature Gran % (Auto) % Neut % (Auto) % Lymph % (Auto) % Hitchcock % (Auto) % Eos % (Auto) % Baso % (Auto) % Neut # (Auto) (1.4-6.5) K/uL Lymph # (Auto) (1.2-3.4) K/uL Hitchcock # (Auto) (0.24-0.82) K/uL Eos # (Auto) (0-0.50) K/uL Baso # (Auto) (0-0.2) K/uL Immature Gran # (Auto) (0.00-0.02) K/uL Sodium (136-145) mmol/L Potassium (3.5-5.1) mmol/L Chloride (98-107) mmol/L Carbon Dioxide (21-32) mmol/L Anion Gap (3-11) BUN (6-23) mg/dl Creatinine (0.6-1.4) mg/dl Est Cr Clr Drug Dosing ml/min Est GFR ( Amer) ml/min Est GFR (Non-Af Amer) ml/min BUN/Creatinine Ratio (10-20) Glucose (70-99(Fasting)) mg/dl Calcium (8.5-10.1) mg/dl Total Bilirubin (0.2-1.0) mg/dl AST (13-39) U/L ALT (7-52) U/L Alkaline Phosphatase (34-104) U/L Troponin I High Sens 32.1 H (0-20) pg/ml Total Protein (6.0-8.3) gm/dl Albumin (3.4-5.0) gm/dl Globulin (2.5-4.0) gm/dl Albumin/Globulin Ratio (0.9-2) Procalcitonin < 0.05 (0-0.5) ng/ml Urine Color Yellow Urine Appearance Clear (Clear) Urine pH 6.5 (4.5-7.5) Ur Specific Gloster 1.019 (1.000-1.030) Urine Protein 1+ H (Negative) Urine Glucose (UA) Negative (Negative) Urine Ketones Trace H (Negative) Urine Blood 1+ H (Negative) Urine Nitrite Negative (Negative) Urine Bilirubin Negative (Negative) Urine Urobilinogen Negative (Negative) Ur Leukocyte Esterase Negative (Negative) Urine WBC (Auto) 1-5 (0-5) /hpf Urine RBC (Auto) 5-10 H (0-4) /hpf U Hyaline Cast (Auto) 5-10 H (0-5) /lpf U Epithel Cells (Auto) 5-10 H (0-5) /lpf Urine Bacteria (Auto) Negative (Negative) SARS-CoV-2 (PCR) (Negative) Influenza Type A (PCR) (Neg) Influenza Type B (PCR) (Neg) RSV (RT-PCR) (Neg) Administered Medications Amlodipine Besylate (Amlodipine Besylate 5 Mg Tab) 5 mg PO QAM [facility] Stop: 06/07/22 08:59 Last Admin: 05/08/22 08:13 Dose: 5 mg Documented By: KAYLI Aspirin (Aspirin 81 Mg Ectab) 81 mg PO QAM [facility] Stop: 06/06/22 21:25 Last Admin: 05/08/22 08:11 Dose: 81 mg Documented By: Admin: 05/07/22 23:06 Dose: 81 mg Documented By: YASMIN Bupropion HCl (Bupropion Sr 150 Mg Tabcr) 150 mg PO BID [facility] Stop: 06/06/22 21:25 Last Admin: 05/08/22 08:12 Dose: 150 mg Documented By: Admin: 05/07/22 23:06 Dose: 150 mg Documented By: YASMIN Enalapril Maleate (Enalapril Maleate 10 Mg Tab) 40 mg PO DAILY [facility] Stop: 06/07/22 08:59 Last Admin: 05/08/22 08:13 Dose: 40 mg Documented By: KAYLI Fluticasone Furoate (Fluticasone Furoate 100mcg 14 Puffs/Inhaler) 1 puffs INH DAILY [facility] Stop: 06/07/22 08:59 Last Admin: 05/08/22 08:14 Dose: 1 puffs Documented By: KAYLI Fluticasone Propionate (Fluticasone Propionate Na Spr 16 Gm Btl) 2 sprays GRACE QPM [facility] Stop: 06/06/22 21:25 Last Admin: 05/07/22 23:12 Dose: Not Given Documented By: YASMIN Gabapentin (Gabapentin 100 Mg Cap) 100 mg PO TID [facility] Stop: 06/06/22 21:25 Last Admin: 05/08/22 14:09 Dose: 100 mg Documented By: Admin: 05/08/22 08:12 Dose: 100 mg Documented By: Admin: 05/07/22 23:06 Dose: 100 mg Documented By: YASMIN Heparin Sodium (Porcine) (Heparin Sod 5,000 Unit/0.5 Ml Vial) 5,000 units SQ Q8 [facility] Stop: 06/06/22 21:59 Last Admin: 05/08/22 14:08 Dose: 5,000 units Documented By: Admin: 05/08/22 05:49 Dose: 5,000 units Documented By: Admin: 05/07/22 23:05 Dose: 5,000 units Documented By: YASMIN Hydralazine HCl (Hydralazine Hcl 20 Mg/Ml Vial) 10 mg IV Q6H PRN PRN Reason: HypertensionSBP>180 or DBP>100 Stop: 06/06/22 21:25 Last Admin: 05/08/22 00:25 Dose: 10 mg Documented By: YASMIN Lorazepam (Lorazepam 0.5 Mg Tab) 0.5 mg PO TID PRN PRN Reason: Panic Attack(S) Stop: 06/06/22 21:25 Last Admin: 05/08/22 05:47 Dose: 0.5 mg Documented By: Admin: 05/07/22 23:07 Dose: 0.5 mg Documented By: YASMIN Metoprolol Succinate (Metoprolol Succ 50mg Ext Rel Tab) 50 mg PO QPM [facility] Stop: 06/06/22 21:25 Last Admin: 05/07/22 23:07 Dose: 50 mg Documented By: YASMIN Umeclidinium/Vilanterol (Umeclidinium/Vilanterol 62.5/25mcg 7 Puffs/Inhaler) 1 puffs INH QAM [facility] Stop: 06/07/22 08:59 Last Admin: 05/08/22 08:13 Dose: 1 puffs Documented By: KAYLI Discontinued Medications Amlodipine Besylate (Amlodipine Besylate 5 Mg Tab) 5 mg PO NOW ONE Stop: 05/07/22 19:01 Last Admin: 05/07/22 19:19 Dose: 5 mg Documented By: YVAN Hydralazine HCl (Hydralazine Hcl 20 Mg/Ml Vial) 10 mg IV ONE ONE Stop: 05/07/22 17:56 Last Admin: 05/07/22 18:33 Dose: 10 mg Documented By: FARIBA Sodium Chloride (Nss 1000ml) 1,000 mls @ 999 mls/hr IV .Q1H1M ONE Stop: 05/07/22 16:58 Last Infusion: 05/07/22 18:38 Dose: 0 mls/hr Documented By: Admin: 05/07/22 16:27 Dose: 999 mls/hr Documented By: FARIBA Lactated Ringer's (Lr) 1,000 mls @ 75 mls/hr IV .[id number] [facility] Last Infusion: 05/08/22 17:17 Dose: 0 mls/hr Documented By: Infusion: 05/08/22 09:14 Dose: 0 mls/hr Documented By: Admin: 05/07/22 22:41 Dose: 75 mls/hr Documented By: MARLEN Magnesium Sulfate/Dextrose (Magnesium Sulfate / D5w) 1 gm in 100 mls @ 50 mls/hr IV 2145 ONE Stop: 05/07/22 23:44 Last Infusion: 05/08/22 01:11 Dose: 0 mls/hr Documented By: Admin: 05/07/22 23:05 Dose: 50 mls/hr Documented By: YASMIN Labetalol HCl (Labetalol Hcl Iv 5 Mg/Ml 20ml) 10 mg IV NOW STA Stop: 05/07/22 17:50 Last Admin: 05/07/22 18:34 Dose: Not Given Documented By: FARIBA Labetalol HCl (Labetalol Hcl Iv 5 Mg/Ml 20ml) 2.5 mg IV NOW STA Stop: 05/07/22 21:08 Last Admin: 05/07/22 22:58 Dose: 2.5 mg Documented By: YASMIN Co-signed By: MARLEN Imaging Data Radiologist's Impression: Head CT 05/07/22 15:58 CT OF THE HEAD WITHOUT CONTRAST CLINICAL HISTORY: Confusion, slurred speech. Recent sinus infection . COMPARISON STUDY: No previous studies for comparison. CT DOSE: 614.27 mGy.cm TECHNIQUE: Helical axial images of the head were obtained without IV contrast. Automated exposure control was utilized for the study. A dose lowering technique was utilized adhering to the principles of ALARA. FINDINGS: No acute intracranial hemorrhage, midline shift or mass effect is present. Mild white matter hypodensities suggest small vessel disease. The ventricular system is unremarkable. The basal cisterns are patent. No extra- axial collections are present. There are no findings to suggest acute dural sinus thrombosis or acute territorial infarct. No significant calvarial abnormalities are present. Visualized portions of the sinuses and mastoid air cells are clear. IMPRESSION: No acute intracranial findings. ACT 112: Negative or not required by law. Electronically signed by: Juan Zhou M.D. 05/07/2022 4:23 PM Discharge Plan Visit Data Chief Complaint: Illness Stated Complaint: CONFUSION,DIZZY,FEELS HOT ED Provider: Livan Smith Discharge Problem: Generalized weakness, Acute confusion, Slurred speech, Hypertensive urgency Patient Disposition: Admitted As Inpatient Discharge Instructions Interventions: ED Discharge Assessment Last Done: 05/07/22 21:12
[2022-05-07 16:16] LABS: Albumin Globulin Ratio 1.4 (0.9-2); Albumin Level 4.3 gm/dl (3.4-5.0); BUN Creatinine Ratio 15.8 (10-20); Bilirubin,Total 0.9 mg/dl (0.2-1.0); Calcium 9.7 mg/dl (8.5-10.1); Est GFR (African American) 38.8 ml/min; Est GFR (Non-African American) 33.5 ml/min; Potassium 3.9 mmol/L (3.5-5.1); Total Protein 7.3 gm/dl (6.0-8.3)
--- NOTE | 2022-05-07 16:25 | CT Scan Report ---
CT OF THE HEAD WITHOUT CONTRAST CLINICAL HISTORY: Confusion, slurred speech. Recent sinus infection . COMPARISON STUDY: No previous studies for comparison. CT DOSE: 614.27 mGy.cm TECHNIQUE: Helical axial images of the head were obtained without IV contrast. Automated exposure con trol was utilized for the study. A dose lowering technique was utilized adhering to the principles o f ALARA. FINDINGS: No acute intracranial hemorrhage, midline shift or mass effect is present. Mild white matte r hypodensities suggest small vessel disease. The ventricular system is unremarkable. The basal ciste rns are patent. No extra-axial collections are present. There are no findings to suggest acute dural sinus thrombosis or acute territorial infarct. No significant calvarial abnormalities are present. Vi sualized portions of the sinuses and mastoid air cells are clear. IMPRESSION: No acute intracranial findings. ACT 112: Negative or not required by law. Electronically signed by: Juan Zhou M.D. 05/07/2022 4:23 PM
[2022-05-07 16:47] LABS: Influenza A virus by PCR Negative (Neg); Influenza B virus by PCR Negative (Neg); RSV by PCR Negative (Neg); SARS CoV2 RNA(COVID-19)Cepheid NEGATIVE (Negative)
[2022-05-07 17:12] LABS: Appearance Urine Clear (Clear); Bacteria Urine Automated Negative (Negative); Bilirubin Urine Negative (Negative); Blood Urine 1+ (Negative); Color Urine Yellow; Glucose Urine UA Negative (Negative); Ketones Urine Trace (Negative); Leukocyte Esterase Urine Negative (Negative); Nitrite Urine Negative (Negative); Protein Urine 1+ (Negative); Specific Gravity Urine 1.019 (1.000-1.030); Urobilinogen Urine Negative (Negative); pH Urine 6.5 (4.5-7.5)
[2022-05-07] MEDS ORDERED: LABETALOL HCL IV 5 MG/ML 20ML IV STA ×2 (17:49→21:07)
[2022-05-07] MEDS ORDERED: hydrALAZINE HCL 20 MG/ML VIAL IV ONE (17:55)
--- NOTE | 2022-05-07 17:55 | History & Physical Report ---
Date of Service May 07, 2022 Assessment & Plan (1) Acute confusion: Plan: Stroke like symptoms Transient confusion--DD: Hypertensive encephalopathy, CVA Not a candidate for tPA- Not indicated as symptoms resolved Admit in Tele CT head: showed no acute pathology Stroke work up including lipid panel, A1C, MRI Brain, carotid Doppler, ECHO Speech therapy eval Start aspirin 81 mg daily for now Neuro checks Consider neurology evaluation if needed PT/OT eval Hypertensive urgency Continue metoprolol, Benazepril Added amlodipine 5 mg daily IV hydralazine as needed Update ECHO Dehydration Mild leukocytosis States having decreased urinary output Hold Amiloride Gentle IV fluids Bladder scan as needed Mild troponin elevation Likely demand ischemia secondary to hypertensive urgency Trend troponin Echo to rule out wall motion abnormality Denies chest pain, dyspnea COPD No signs of exacerbation Continue home trilogy H/O pulmonary nodules As per records Follow-up as outpatient BERNARDO CPAP at HS CKD III Baseline creatinine ~ 1.8 Cr at baseline Monitor renal function Follows with [facility] nephrology Past tobacco use disorder Quit smoking 1 month ago H/O panic disorder Ativan as needed DVT Px: Heparin SQ Code Status Full Code History of Present Illness Chief Complaint: Altered mental status Primary Care Provider: Laverne Rodriguez DO Patient is a 76-year-old male with history of COPD, CKD stage III, dyslipidemia, tobacco use disorder, pulmonary nodules, hypertension, obstructive sleep apnea on CPAP and other medical problems presents with history of generalized weakness, dizziness, nausea, confusion and ambulatory dysfunction. Patient started to notice his symptom onset around 9 AM this morning. He admits to have recently been treated for sinus infection with an oral antibiotic for 10 days which she completed the course. This morning, patient noted to feel not himself, felt feverish but no fever when checked. Also felt nauseous and has generalized weakness associated with dizziness. " I felt incoherent, have trouble using cell phone and watching TV." He was evaluated by [facility] outpatient clinic for confusion and disorientation and was sent to ED for further evaluation. He was also noted to have some slurred speech by family which currently resolved. Patient believes that his symptoms lasted till about 5:30 PM today. He admits to have some instability with ambulation. He reports being compliant with medications. His blood pressure is elevated while in ED. Currently states that his symptoms have resolved. At baseline, he uses Ativan as needed for panic attacks. He admits to take a dose of Ativan today which he believes helped with his symptoms. Denies any history of chest pain, dyspnea, palpitations, pedal edema, cough, chills, fall, head trauma, syncope, headache, focal weakness, numbness, change in vision, double/blurry vision, facial deformity, bowel/bladder incontinence, vomiting, abdominal pain, diarrhea, dysuria, recent change in medications. Allergies Allergy/AdvReac Type Severity Reaction Status Date / Time No Known Allergies Allergy Verified 05/07/22 16:31 Home Medications Medication Instructions Recorded Confirmed Type metoprolol succinate 50 mg 50 mg PO QPM 03/11/18 05/07/22 History tablet,extended release 24 hr (Toprol XL) multivitamin with minerals 1 tab PO DAILY 03/11/18 05/07/22 History (Multiple Vitamin-Minerals tablet) benazepril 40 mg tablet 40 mg PO DAILY 05/16/19 05/07/22 History bupropion HCl 150 mg tablet,12 hr 150 mg PO BID 05/16/19 05/07/22 History sustained-release gabapentin 100 mg capsule 100 mg PO TID 05/16/19 05/07/22 History amiloride 5 mg tablet 5 mg PO QAM 05/07/22 05/07/22 History cholecalciferol (vitamin D3) 50 50 mcg PO DAILY 05/07/22 05/07/22 History mcg (2,000 unit) capsule (Vitamin D3) cholestyramine (with sugar) 4 gram 1 ea PO BID PRN Diarrhea 05/07/22 05/07/22 History powder for susp in a packet fluticasone fur. 100 mcg-umeclid 1 inh inhalation DAILY 05/07/22 05/07/22 History 62.5 mcg-vilant 25 mcg inhalat.powder (Trelegy Ellipta) fluticasone propionate 50 2 spray intranasal QPM 05/07/22 05/07/22 History mcg/actuation nasal spray,suspension lorazepam 0.5 mg tablet 0.5 mg PO TID PRN Panic Attack(S) 05/07/22 05/07/22 History Past Med/Surg History Medical History Centrilobular emphysema Hematuria Hypertension Hypokalemia Post-nasal drip Renal colic Sleep apnea Social History Smoking Status: Former smoker Cigarettes Per Day: 8; Hx Alcohol Use: No Hx Substance Use: No Preferred Language: Divehi Communication Ability: Effective [employer] Required: No Beliefs That Will Affect Care: None Current Living Situation: Spouse Feels Safe at Home: Yes Assistive Devices: Glasses Immunizations: Family, surgical history reviewed. Noncontributory. Review of Systems Review of Systems: All systems reviewed & are unremarkable except as noted in Subjective Physical Exam Physical Exam: Physical Exam: Vitals signs as noted above General Appearance:Moderately built and nourished, no apparent distress Head: normocephalic, Atraumatic Eyes: normal inspection, EOMI Neck: supple, Trachea midline Respiratory/Chest: Normal breath sounds, CTA, No accessory muscle use Cardiovascular: S1, S2, No murmur Abdomen/GI:Soft, Non tender, Bowel sounds present Extremities/Musculoskeletal:normal inspection, no edema Neurologic/Psych:AAOX3, grossly no focal neurological deficits Skin: normal color, warm Results & Data Results & Data ([facility]) Vital Signs (Past 12 Hours) Vital Signs Temp Pulse Resp BP Pulse Ox O2 Del Method 05/07/22 16:30 91 H 22 95 05/07/22 16:30 197/110 H 05/07/22 15:13 36.3 C L 107 H 18 168/99 H 96 Room Air Laboratory Results Short CBC 05/07/22 Range/Units 15:39 WBC 11.58 H (4.8-10.8) K/ul Hgb 15.3 (14.0-18.0) g/dl Hct 42.1 (40.1-51.0) % Plt Count 227 (130-400) K/uL BMP 05/07/22 15:39 Sodium 142 Potassium 3.9 Chloride 108 H Carbon Dioxide 23 BUN 30 H Creatinine 1.90 H Glucose 119 H Calcium 9.7 Liver Function 05/07/22 Range/Units 15:39 Total Bilirubin 0.9 (0.2-1.0) mg/dl AST 16 (13-39) U/L ALT 14 (7-52) U/L Alkaline Phosphatase 85 (34-104) U/L Albumin 4.3 (3.4-5.0) gm/dl Urine 05/07/22 Range/Units 16:54 Urine Color Yellow Urine Appearance Clear (Clear) Urine pH 6.5 (4.5-7.5) Ur Specific [place] 1.019 (1.000-1.030) Urine Protein 1+ H (Negative) Urine Glucose (UA) Negative (Negative) Diagnostic Findings CT Head: No acute intracranial findings. Medications Administered Home Medications Medication Instructions Recorded Confirmed metoprolol succinate 50 mg 50 mg PO QPM 03/11/18 05/07/22 tablet,extended release 24 hr (Toprol XL) multivitamin with minerals 1 tab PO DAILY 03/11/18 05/07/22 (Multiple Vitamin-Minerals tablet) benazepril 40 mg tablet 40 mg PO DAILY 05/16/19 05/07/22 bupropion HCl 150 mg tablet,12 hr 150 mg PO BID 05/16/19 05/07/22 sustained-release gabapentin 100 mg capsule 100 mg PO TID 05/16/19 05/07/22 amiloride 5 mg tablet 5 mg PO QAM 05/07/22 05/07/22 cholecalciferol (vitamin D3) 50 50 mcg PO DAILY 05/07/22 05/07/22 mcg (2,000 unit) capsule (Vitamin D3) cholestyramine (with sugar) 4 gram 1 ea PO BID PRN Diarrhea 05/07/22 05/07/22 powder for susp in a packet fluticasone fur. 100 mcg-umeclid 1 inh inhalation DAILY 05/07/22 05/07/22 62.5 mcg-vilant 25 mcg inhalat.powder (Trelegy Ellipta) fluticasone propionate 50 2 spray intranasal QPM 05/07/22 05/07/22 mcg/actuation nasal spray,suspension lorazepam 0.5 mg tablet 0.5 mg PO TID PRN Panic Attack(S) 05/07/22 05/07/22 ECG Additional Comments: EKG: Sinus tachycardia, right bundle branch block, left posterior fascicular block, EKG 47.
[2022-05-07] MEDS ORDERED: amLODIPine BESYLATE 5 MG TAB PO ONE (19:00)
[2022-05-07] MEDS ORDERED: ONDANSETRON INJ 2 MG/ML 2 ML VIAL IV PRN (21:26)
[2022-05-07] MEDS ORDERED: hydrALAZINE HCL 20 MG/ML VIAL IV PRN (21:26)
[2022-05-07] MEDS ORDERED: LACTATED RINGER'S 1,000 ML IV SCH (21:26)
[2022-05-07] MEDS ORDERED: PHARMACIST DISCHARGE MED REC CONSULT PRN (21:26)
[2022-05-07] MEDS ORDERED: NICOTINE POLACRILEX 2 MG GUM MT PRN (21:26)
[2022-05-07] MEDS ORDERED: ACETAMINOPHEN 325 MG TAB PO PRN (21:26)
[2022-05-07] MEDS ORDERED: POLYETHYLENE (MIRALAX) 17 GM PACK PO PRN (21:26)
[2022-05-07] MEDS ORDERED: MAGNESIUM SULFATE / D5W 1 GM/100 ML BAG IV ONE (21:45)
[2022-05-07] MEDS: HEPARIN SOD 5,000 UNIT/0.5 ML VIAL SQ SCH (23:05)
[2022-05-07] MEDS: ASPIRIN 81 MG ECTAB PO SCH (23:06)
[2022-05-07] MEDS: buPROPion SR 150 MG TABCR PO SCH (23:06)
[2022-05-07] MEDS: GABAPENTIN 100 MG CAP PO SCH (23:06)
[2022-05-07] MEDS: LORazepam 0.5 MG TAB PO PRN (23:07)
[2022-05-07] MEDS: METOPROLOL SUCC 50MG EXT REL TAB PO SCH (23:07)
[2022-05-07] MEDS: FLUTICASONE PROPIONATE NA SPR 16 GM BTL NAE SCH (23:12)
[2022-05-08] MEDS: LORazepam 0.5 MG TAB PO PRN (05:47)
[2022-05-08] MEDS: HEPARIN SOD 5,000 UNIT/0.5 ML VIAL SQ SCH ×3 (05:49→22:40)
[2022-05-08 08:04] LABS: Basophils # (auto) 0.06 K/uL (0-0.2); Basophils % (auto) 0.6 %; Eosinophils # (auto) 0.13 K/uL (0-0.50); Eosinophils % (auto) 1.2 %; Hematocrit (blood only) 40.3 % (40.1-51.0); Hemoglobin 14.1 g/dl (14.0-18.0); Immature Granulocytes # (auto) 0.03 K/uL (0.00-0.02); Immature Granulocytes % (auto) 0.3 %; Lymphocytes # (auto) 1.63 K/uL (1.2-3.4); Lymphocytes % (auto) 15.1 %; Mean Corpuscular Hemoglobin 31.9 pg (25.0-34.0); Mean Corpuscular Volume 91.2 fL (80.0-100.0); Mean Platelet Volume 11.3 fL (9.4-12.4); Monocytes # (auto) 0.71 K/uL (0.24-0.82); Monocytes % (auto) 6.6 %; Neutrophils # (auto) 8.23 K/uL (1.4-6.5); Neutrophils % (auto) 76.2 %; Platelet Count 199 K/uL (130-400); RDW Coefficient of Variation 13.3 % (11.5-14.5); RDW Standard Deviation 45.1 fL (36.4-46.3); Red Blood Count 4.42 M/uL (4.63-6.08); White Blood Count 10.79 K/ul (4.8-10.8)
[2022-05-08] MEDS: ASPIRIN 81 MG ECTAB PO SCH (08:11)
[2022-05-08] MEDS: GABAPENTIN 100 MG CAP PO SCH ×3 (08:12→20:56)
[2022-05-08] MEDS: buPROPion SR 150 MG TABCR PO SCH ×2 (08:12→20:55)
[2022-05-08] MEDS: ENALAPRIL MALEATE 10 MG TAB PO SCH (08:13)
[2022-05-08] MEDS: amLODIPine BESYLATE 5 MG TAB PO SCH (08:13)
[2022-05-08] MEDS: UMECLIDINIUM/VILANTEROL 62.5/25MCG 7 PUFFS/INHALER INH SCH (08:13)
[2022-05-08] MEDS: FLUTICASONE FUROATE 100MCG 14 PUFFS/INHALER INH SCH (08:14)
[2022-05-08 08:27] LABS: BUN Creatinine Ratio 15.6 (10-20); Chol HDL Ratio 3.5 (0-5); Est GFR (African American) 58.7 ml/min; Est GFR (Non-African American) 50.6 ml/min; Potassium 3.5 mmol/L (3.5-5.1)
--- NOTE | 2022-05-08 10:05 | XRay Report ---
XR chest 1V portable CLINICAL HISTORY: Wheezing. COMPARISON STUDY: Chest radiograph March 11, 2018. FINDINGS: Lung volumes are normal. There is no consolidation to suggest pneumonia. Linear left basila r opacity favors atelectasis. There is no pneumothorax or pleural effusion. Cardiac size is normal. M ediastinal contours are normal. There is no evidence for pulmonary edema. IMPRESSION: No acute cardiopulmonary findings. ACT 112: Negative or not required by law. Electronically signed by: Juan Zhou M.D. 05/08/2022 10:03 AM
--- NOTE | 2022-05-08 10:33 | Magnetic Resonance Report ---
MRI OF THE BRAIN WITHOUT CONTRAST CLINICAL HISTORY: Stroke like symptoms COMPARISON STUDY: Head CT performed earlier today. TECHNIQUE: Utilizing a 1.5 Eboni magnet and dedicated coil, multiplanar, multiecho imaging of the bra in was performed without IV contrast. FINDINGS: There are no foci of restricted diffusion to suggest acute infarct. No acute intracranial h emorrhage, midline shift or mass effect is present. Mild atrophy is noted. White matter T2 hyperinten se foci suggest moderate small vessel disease. No intracranial masses are identified on this unenhanc ed exam. Flow-voids for the major intracranial vessels are present. Coronal FLAIR sequence is mildly compromised by motion artifact. Calvarial signal is normal. There is no evidence for sinusitis. There is no mastoid fluid. IMPRESSION: No acute intracranial findings. ACT 112: Negative or not required by law. Electronically signed by: Juan Zhou M.D. 05/08/2022 10:31 AM
[2022-05-08 11:55] LABS: Estimated Average Glucose 117 mg/dl; Hemoglobin A1C 5.7 % (4.5-5.6)
--- NOTE | 2022-05-08 12:04 | Ultrasound Report ---
BILATERAL CAROTID DOPPLER STUDY HISTORY: stroke like symptoms COMPARISON: None. TECHNIQUE: Real-time, grayscale, and color Doppler sonography of the carotid arteries was performed. Imaging reviewed in the transverse and longitudinal planes. All measurements were calculated based on NASCET criteria. FINDINGS: Antegrade flow is seen in the bilateral vertebral arteries. Focal area of moderate noncalcified/soft plaque within the left carotid bulb resulting in 50% stenosi s. The peak systolic velocity within the right ICA is 42 cm/s. The right systolic ratio is 0.6. The peak systolic velocity within the left ICA is 69 cm/s. The left systolic ratio is 1. IMPRESSION: 1. A focal area of noncalcified/soft plaque within the left carotid bulb resulting in 50% stenosis. 2. No significant stenosis within the right carotid arteries. ACT 112: Negative or not required by law. Electronically signed by: Magno Benjamin M.D. 05/08/2022 12:03 PM
--- NOTE | 2022-05-08 13:52 | Electrocardiogram Report ---
Test Reason : Blood Pressure : / mmHG Vent. Rate : 103 BPM Atrial Rate : 103 BPM P-R Int : 146 ms QRS Dur : 126 ms QT Int : 372 ms P-R-T Axes : -01 125 002 degrees QTc Int : 487 ms Sinus tachycardia Right bundle branch block Left posterior fascicular block Bifascicular block Abnormal ECG When compared with ECG of 16-MAY-2019 18:36, Significant changes have occurred Confirmed by Juan Pace ([id number]) on 05/08/2022 1:51:57 PM Referred By: REFERRED SELF Confirmed By:Juan Pace
--- NOTE | 2022-05-08 14:31 | Electrocardiogram Report ---
Test Reason : Blood Pressure : / mmHG Vent. Rate : 077 BPM Atrial Rate : 077 BPM P-R Int : 154 ms QRS Dur : 134 ms QT Int : 432 ms P-R-T Axes : 028 -66 057 degrees QTc Int : 488 ms Normal sinus rhythm Right bundle branch block Left anterior fascicular block Bifascicular block Minimal voltage criteria for LVH, may be normal variant Possible Lateral infarct , age undetermined Cannot rule out Inferior infarct , age undetermined Abnormal ECG When compared with ECG of 07-MAY-2022 15:39, (unconfirmed) Significant changes have occurred Confirmed by Juan Pace ([id number]) on 05/08/2022 2:31:39 PM Referred By: REFERRED SELF Confirmed By:Juan Pace
--- NOTE | 2022-05-08 15:35 | Hospitalist Progress Note ---
Date of Service May 08, 2022 Assessment & Plan (1) Acute confusion: Plan: Stroke like symptoms Transient confusion--DD: Hypertensive encephalopathy, TIA Not a candidate for tPA- Not indicated as symptoms resolved --CT head: showed no acute pathology --MRI Brain:No acute intracranial findings. --Carotid Doppler: A focal area of noncalcified/soft plaque within the left carotid bulb resulting in 50% stenosis. No significant stenosis within the right carotid arteries. --ECHO: Mild concentric LVH. EF 60 to 65%. No segmental left ventricle wall motion abnormality. Grade 1 diastolic dysfunction. No significant valvular pathology. Interatrial septum is intact with no evidence of ASD. No interatrial shunt. Mild aortic root dilatation. -- HbA1c 5.7 --LDL 58 Speech therapy eval Continue Aspirin 81 mg daily Neuro checks Consider neurology evaluation if needed PT/OT eval Fall precautions Minimize benzodiazepines as able to minimize delirium Delirium precautions Hypertensive urgency Continue metoprolol, Benazepril Added amlodipine 5 mg daily IV hydralazine as needed ECHO as above Dehydration Mild leukocytosis Hold Amiloride for now Received gentle IV fluids Bladder scan as needed Leukocytosis resolved Mild troponin elevation Likely demand ischemia secondary to hypertensive urgency Troponin trended Less likely ACS Echo showed no wall motion abnormality Denies chest pain, dyspnea COPD No signs of exacerbation Continue home trilogy H/O pulmonary nodules As per records Follow-up as outpatient BERNARDO CPAP at CKD III Baseline creatinine ~ 1.8 Cr at baseline Monitor renal function Follows with [facility] Past tobacco use disorder Quit smoking 1 month ago H/O panic disorder Ativan as needed DVT Px: Heparin SQ Code Status Full Code Admission and Anticipated Discharge Date Admission Date: May 07, 2022 Subjective Patient is seen and examined at bedside Reports minimal intermittent dizziness Otherwise feels well today Patient's family noted patient to have minimal confusion overnight No recurrence of slurred speech Denies any chest pain, short breath, dizziness, abdominal pain He did admit to have transient nausea this morning Family at bedside Review of Systems Review of Systems: All systems reviewed & are unremarkable except as noted in Subjective Physical Exam Physical Exam: Physical Exam: Vitals signs as noted above General Appearance:Moderately built and nourished, no apparent distress Head: normocephalic, Atraumatic Eyes: normal inspection, EOMI Neck: supple, Trachea midline Respiratory/Chest: Normal breath sounds, CTA, No accessory muscle use Cardiovascular: S1, S2, No murmur Abdomen/GI:Soft, Non tender, Bowel sounds present Extremities/Musculoskeletal:normal inspection, no edema Neurologic/Psych:AAOX3, grossly no focal neurological deficits Skin: normal color, warm Results & Data Results & Data ([facility]) Vital Signs (Past 12 Hours) Vital Signs Temp Pulse Pulse Resp BP Pulse Ox O2 Del Method 05/08/22 11:48 36.4 C L 80 18 161/83 H 96 Room Air 05/08/22 11:16 74 05/08/22 09:35 Room Air 05/08/22 07:35 36.5 C 74 18 170/82 H 95 Room Air 05/08/22 04:02 90 18 FiO2 05/08/22 11:48 05/08/22 11:16 05/08/22 09:35 05/08/22 07:35 05/08/22 04:02 21 Laboratory Results Short CBC 05/07/22 05/08/22 Range/Units 15:39 07:28 WBC 11.58 H 10.79 (4.8-10.8) K/ul Hgb 15.3 14.1 (14.0-18.0) g/dl Hct 42.1 40.3 (40.1-51.0) % Plt Count 227 199 (130-400) K/uL BMP 05/07/22 05/08/22 15:39 07:28 Sodium 142 139 Potassium 3.9 3.5 Chloride 108 H 107 Carbon Dioxide 23 24 BUN 30 H 21 Creatinine 1.90 H 1.35 D Glucose 119 H 109 H Calcium 9.7 9.0 Liver Function 05/07/22 Range/Units 15:39 Total Bilirubin 0.9 (0.2-1.0) mg/dl AST 16 (13-39) U/L ALT 14 (7-52) U/L Alkaline Phosphatase 85 (34-104) U/L Albumin 4.3 (3.4-5.0) gm/dl Urine 05/07/22 Range/Units 16:54 Urine Color Yellow Urine Appearance Clear (Clear) Urine pH 6.5 (4.5-7.5) Ur Specific [place] 1.019 (1.000-1.030) Urine Protein 1+ H (Negative) Urine Glucose (UA) Negative (Negative)
[2022-05-08] MEDS: FLUTICASONE PROPIONATE NA SPR 16 GM BTL NAE SCH (20:55)
[2022-05-08] MEDS: METOPROLOL SUCC 50MG EXT REL TAB PO SCH (20:56)
[2022-05-09] MEDS: HEPARIN SOD 5,000 UNIT/0.5 ML VIAL SQ SCH ×2 (06:10→13:59)
[2022-05-09] MEDS: ENALAPRIL MALEATE 10 MG TAB PO SCH (07:35)
[2022-05-09] MEDS: ASPIRIN 81 MG ECTAB PO SCH (07:35)
[2022-05-09] MEDS: UMECLIDINIUM/VILANTEROL 62.5/25MCG 7 PUFFS/INHALER INH SCH (07:35)
[2022-05-09] MEDS: amLODIPine BESYLATE 5 MG TAB PO SCH (07:35)
[2022-05-09] MEDS: buPROPion SR 150 MG TABCR PO SCH (07:35)
[2022-05-09] MEDS: GABAPENTIN 100 MG CAP PO SCH ×2 (07:35→13:59)
[2022-05-09] MEDS: FLUTICASONE FUROATE 100MCG 14 PUFFS/INHALER INH SCH (07:36)
[2022-05-09 09:12] LABS: Base Excess VBG 0.3 mEq/L; HCO3 VBG 25 mmol/L; Oxygen Saturation VBG 79.2 %; PCO2 VBG 42 mmHg (38-50); PO2 VBG 46 mmHg; pH VBG 7.39 (7.36-7.41)
[2022-05-09 09:19] LABS: Hematocrit (blood only) 39.8 % (40.1-51.0); Hemoglobin 13.5 g/dl (14.0-18.0); Mean Corpuscular Hemoglobin 31.5 pg (25.0-34.0); Mean Corpuscular Hgb Conc 33.9 g/dL (32.0-36.0); Mean Corpuscular Volume 92.8 fL (80.0-100.0); Mean Platelet Volume 11.8 fL (9.4-12.4); Platelet Count 135 K/uL (130-400); RDW Coefficient of Variation 13.6 % (11.5-14.5); RDW Standard Deviation 45.9 fL (36.4-46.3); Red Blood Count 4.29 M/uL (4.63-6.08)
[2022-05-09 09:46] LABS: BUN Creatinine Ratio 13.4 (10-20); Creatinine Clr Calc Pharmacy 31.3 ml/min; Est GFR (African American) 37.9 ml/min; Est GFR (Non-African American) 32.7 ml/min; Magnesium 2.2 mg/dl (1.7-2.4); Potassium 3.7 mmol/L (3.5-5.1)
[2022-05-09 10:17] LABS: Basophils # (auto) 0.06 K/uL (0-0.2); Basophils % (auto) 0.6 %; Eosinophils # (auto) 0.15 K/uL (0-0.50); Eosinophils % (auto) 1.5 %; Immature Granulocytes # (auto) 0.02 K/uL (0.00-0.02); Immature Granulocytes % (auto) 0.2 %; Lymphocytes # (auto) 2.49 K/uL (1.2-3.4); Lymphocytes % (auto) 25.2 %; Monocytes # (auto) 0.53 K/uL (0.24-0.82); Monocytes % (auto) 5.4 %; Neutrophils # (auto) 6.65 K/uL (1.4-6.5); Neutrophils % (auto) 67.1 %
--- NOTE | 2022-05-09 12:04 | Hospitalist Progress Note ---
Date of Service May 09, 2022 Assessment & Plan (1) Acute confusion: Plan: Stroke like symptoms Transient confusion--DD: Hypertensive encephalopathy, TIA Not a candidate for tPA- Not indicated as symptoms resolved --CT head: showed no acute pathology --MRI Brain:No acute intracranial findings. --Carotid Doppler: A focal area of noncalcified/soft plaque within the left carotid bulb resulting in 50% stenosis. No significant stenosis within the right carotid arteries. --ECHO: Mild concentric LVH. EF 60 to 65%. No segmental left ventricle wall motion abnormality. Grade 1 diastolic dysfunction. No significant valvular pathology. Interatrial septum is intact with no evidence of ASD. No interatrial shunt. Mild aortic root dilatation. -- HbA1c 5.7 --LDL 58 Speech therapy eval Continue Aspirin 81 mg daily Neuro checks Consider neurology evaluation as outpatient PT/OT eval Fall precautions Minimize benzodiazepines as able to minimize delirium Delirium precautions Patient/family not interested to Rehab, Prefers home with Hypertensive urgency Continue metoprolol, Benazepril Added amlodipine 5 mg daily IV hydralazine as needed ECHO as above Dehydration Mild leukocytosis Held Amiloride while hospitalization Received gentle IV fluids Bladder scan as needed Leukocytosis resolved Mild troponin elevation Likely demand ischemia secondary to hypertensive urgency Troponin trended Less likely ACS Echo showed no wall motion abnormality Denies chest pain, dyspnea COPD No signs of exacerbation Continue home trilogy H/O pulmonary nodules As per records Follow-up as outpatient BERNARDO CPAP at CKD III Baseline creatinine ~ 1.8 Cr at baseline Monitor renal function Follows with [facility] Past tobacco use disorder Quit smoking 1 month ago [facility] D[facility] Px: Heparin SQ Code Status Full Code Disposition Home with Admission and Anticipated Discharge Date Admission Date: May 07, 2022 Subjective Patient is seen and examined at bedside States feeling well today Mental status back to baseline Dizziness, nausea resolved Ambulated in hallway with no issues Offers complaints BP much improved Prefers to be discharged home with Home Health Discusses with Patient's family at bedside No recurrence of slurred speech Denies any chest pain, short breath, abdominal pain Review of Systems Review of Systems: All systems reviewed & are unremarkable except as noted in Subjective Physical Exam Physical Exam: Physical Exam: Vitals signs as noted above General Appearance:Moderately built and nourished, no apparent distress Head: normocephalic, Atraumatic Eyes: normal inspection, EOMI Neck: supple, Trachea midline Respiratory/Chest: Normal breath sounds, CTA, No accessory muscle use Cardiovascular: S1, S2, No murmur Abdomen/GI:Soft, Non tender, Bowel sounds present Extremities/Musculoskeletal:normal inspection, no edema Neurologic/Psych:AAOX3, grossly no focal neurological deficits Skin: normal color, warm Results & Data Results & Data ([facility]) Vital Signs (Past 12 Hours) Vital Signs Temp Pulse Pulse Pulse Resp BP Pulse Ox 05/09/22 11:08 36.7 C 71 18 133/78 96 05/09/22 08:00 70 05/09/22 08:00 05/09/22 07:31 36.7 C 78 18 133/77 92 05/09/22 03:47 36.6 C 71 18 151/70 H 97 O2 Del Method 05/09/22 11:08 Room Air 05/09/22 08:00 05/09/22 08:00 Room Air 05/09/22 07:31 Room Air 05/09/22 03:47 Laboratory Results Short CBC 05/09/22 Range/Units 08:22 WBC 9.90 (4.8-10.8) K/ul Hgb 13.5 L (14.0-18.0) g/dl Hct 39.8 L (40.1-51.0) % Plt Count 135 (130-400) K/uL BMP 05/09/22 08:22 Sodium 140 Potassium 3.7 Chloride 107 Carbon Dioxide 25 BUN 26 H Creatinine 1.94 H D Glucose 120 H Calcium 9.0
[2022-05-09] MEDS ORDERED: STROKE PATIENT DISCHARGE STA (12:15)
--- NOTE | 2022-05-09 12:17 | Discharge Summary ---
Date of Service May 09, 2022 Admission HPI Per Admitting Provider Patient is a 76-year-old male with history of COPD, CKD stage III, dyslipidemia, tobacco use disorder, pulmonary nodules, hypertension, obstructive sleep apnea on CPAP and other medical problems presents with history of generalized weakness, dizziness, nausea, confusion and ambulatory dysfunction. Patient started to notice his symptom onset around 9 AM this morning. He admits to have recently been treated for sinus infection with an oral antibiotic for 10 days which she completed the course. This morning, patient noted to feel not himself, felt feverish but no fever when checked. Also felt nauseous and has generalized weakness associated with dizziness. " I felt incoherent, have trouble using cell phone and watching TV." He was evaluated by [facility] outpatient clinic for confusion and disorientation and was sent to ED for further evaluation. He was also noted to have some slurred speech by family which currently resolved. Patient believes that his symptoms lasted till about 5:30 PM today. He admits to have some instability with ambulation. He reports being compliant with medications. His blood pressure is elevated while in ED. Currently states that his symptoms have resolved. At baseline, he uses Ativan as needed for panic attacks. He admits to take a dose of Ativan today which he believes helped with his symptoms. Denies any history of chest pain, dyspnea, palpitations, pedal edema, cough, chills, fall, head trauma, syncope, headache, focal weakness, numbness, change in vision, double/blurry vision, facial deformity, bowel/bladder incontinence, vomiting, abdominal pain, diarrhea, dysuria, recent change in medications. Admission Exam Per Admitting Provider Physical Exam: Vitals signs as noted above General Appearance:Moderately built and nourished, no apparent distress Head: normocephalic, Atraumatic Eyes: normal inspection, EOMI Neck: supple, Trachea midline Respiratory/Chest: Normal breath sounds, CTA, No accessory muscle use Cardiovascular: S1, S2, No murmur Abdomen/GI:Soft, Non tender, Bowel sounds present Extremities/Musculoskeletal:normal inspection, no edema Neurologic/Psych:AAOX3, grossly no focal neurological deficits Skin: normal color, warm Principal Diagnosis Hypertensive encephalopathy Possible transient ischemic attack Hypertensive urgency Discharge Data Allergies Allergy/AdvReac Type Severity Reaction Status Date / Time No Known Allergies Allergy Verified 05/07/22 16:31 Consultations 05/07/22 17:49 ED Decision to Admit Stat 05/07/22 17:57 ED Decision to Admit Stat Procedures Performed Laboratory Results WBC 9.90 K/ul (4.8-10.8) 05/09/22 08: RBC 4.29 M/uL (4.63-6.08) L 05/09/22 08: Hgb 13.5 g/dl (14.0-18.0) L 05/09/22 08: Hct 39.8 % (40.1-51.0) L 05/09/22 08: MCV 92.8 fL (80.0-100.0) 05/09/22 08: MCH 31.5 pg (25.0-34.0) 05/09/22 08: MCHC 33.9 g/dL (32.0-36.0) 05/09/22 08: RDW Std Deviation 45.9 fL (36.4-46.3) 05/09/22 08: RDW Coeff of Arben 13.6 % (11.5-14.5) 05/09/22 08: Plt Count 135 K/uL (130-400) 05/09/22 08: MPV 11.8 fL (9.4-12.4) 05/09/22 08: Immature Gran % (Auto) 0.2 % 05/09/22 08: Neut % (Auto) 67.1 % 05/09/22 08: Lymph % (Auto) 25.2 % 05/09/22 08: [place] % (Auto) 5.4 % 05/09/22 08: Eos % (Auto) 1.5 % 05/09/22 08: Baso % (Auto) 0.6 % 05/09/22 08: Neut # (Auto) 6.65 K/uL (1.4-6.5) H 05/09/22 08: Lymph # (Auto) 2.49 K/uL (1.2-3.4) 05/09/22 08:22 [place] # (Auto) 0.53 K/uL (0.24-0.82) 05/09/22 08:22 Eos # (Auto) 0.15 K/uL (0-0.50) 05/09/22 08:22 Baso # (Auto) 0.06 K/uL (0-0.2) 05/09/22 08:22 Immature Gran # (Auto) 0.02 K/uL (0.00-0.02) 05/09/22 08:22 VBG pH 7.39 (7.36-7.41) 05/09/22 08:22 VBG pCO2 42 mmHg (38-50) 05/09/22 08: VBG pO2 46 mmHg 05/09/22 08:22 VBG HCO3 25 mmol/L 05/09/22 08:22 VBG O2 Saturation 79.2 % 05/09/22 08:22 VBG Base Excess 0.3 mEq/L 05/09/22 08: Sodium 140 mmol/L (136-145) 05/09/22 08: Potassium 3.7 mmol/L (3.5-5.1) 05/09/22 08: Chloride 107 mmol/L (98-107) 05/09/22 08: Carbon Dioxide 25 mmol/L (21-32) 05/09/22 08:22 Anion Gap 8 (3-11) 05/09/22 08:22 BUN 26 mg/dl (6-23) H 05/09/22 08:22 Creatinine 1.94 mg/dl (0.6-1.4) H D 05/09/22 08:22 Est Cr Clr Drug Dosing 31.3 ml/min 05/09/22 08:22 Est GFR ( Amer) 37.9 ml/min 05/09/22 08:22 Est GFR (Non-Af Amer) 32.7 ml/min 05/09/22 08:22 BUN/Creatinine Ratio 13.4 (10-20) 05/09/22 08:22 Glucose 120 mg/dl (70-99(Fasting)) H 05/09/22 08:22 Estimat Average Glucose 117 mg/dl 05/08/22 07:28 Hemoglobin A1c 5.7 % (4.5-5.6) H 05/08/22 07:28 Calcium 9.0 mg/dl (8.5-10.1) 05/09/22 08: Magnesium 2.2 mg/dl (1.7-2.4) 05/09/22 08:22 Total Bilirubin 0.9 mg/dl (0.2-1.0) 05/07/22 15:39 AST 16 U/L (13-39) 05/07/22 15:39 ALT 14 U/L (7-52) 05/07/22 15:39 Alkaline Phosphatase 85 U/L (34-104) 05/07/22 15:39 Troponin I High Sens 68.7 pg/ml (0-20) H* 05/08/22 08:49 Total Protein 7.3 gm/dl (6.0-8.3) 05/07/22 15:39 Albumin 4.3 gm/dl (3.4-5.0) 05/07/22 15:39 Globulin 3.0 gm/dl (2.5-4.0) 05/07/22 15:39 Albumin/Globulin Ratio 1.4 (0.9-2) 05/07/22 15:39 Triglycerides 157 mg/dl (0-150) H 05/08/22 07:28 Cholesterol 124 mg/dl (0-200) 05/08/22 07:28 LDL Cholesterol, Calc 58 mg/dl 05/08/22 07:28 VLDL Cholesterol, Calc 31 mg/dl (0-30) H 05/08/22 07:28 HDL Cholesterol 35 mg/dl 05/08/22 07:28 Cholesterol/HDL Ratio 3.5 (0-5) 05/08/22 07:28 Vitamin B12 352 pg/ml (180-914) 05/09/22 08:22 Procalcitonin < 0.05 ng/ml (0-0.5) 05/07/22 15:39 TSH 2.230 uIu/ml (0.300-4.500) 05/09/22 08:22 Urine Color Yellow 05/07/22 16:54 Urine Appearance Clear (Clear) 05/07/22 16:54 Urine pH 6.5 (4.5-7.5) 05/07/22 16:54 Ur Specific [place] 1.019 (1.000-1.030) 05/07/22 16:54 Urine Protein 1+ (Negative) H 05/07/22 16:54 Urine Glucose (UA) Negative (Negative) 05/07/22 16:54 Urine Ketones Trace (Negative) H 05/07/22 16:54 Urine Blood 1+ (Negative) H 05/07/22 16:54 Urine Nitrite Negative (Negative) 05/07/22 16:54 Urine Bilirubin Negative (Negative) 05/07/22 16:54 Urine Urobilinogen Negative (Negative) 05/07/22 16:54 Ur Leukocyte Esterase Negative (Negative) 05/07/22 16:54 Urine WBC (Auto) 1-5 /hpf (0-5) 05/07/22 16:54 Urine RBC (Auto) 5-10 /hpf (0-4) H 05/07/22 16:54 U Hyaline Cast (Auto) 5-10 /lpf (0-5) H 05/07/22 16:54 U Epithel Cells (Auto) 5-10 /lpf (0-5) H 05/07/22 16:54 Urine Bacteria (Auto) Negative (Negative) 05/07/22 16:54 SARS-CoV-2 (PCR) NEGATIVE (Negative) 05/07/22 15:39 Influenza Type A (PCR) Negative (Neg) 05/07/22 15:39 Influenza Type B (PCR) Negative (Neg) 05/07/22 15:39 RSV (RT-PCR) Negative (Neg) 05/07/22 15:[address] 05/07/22 15:58 CT OF THE HEAD WITHOUT CONTRAST CLINICAL HISTORY: Confusion, slurred speech. Recent sinus infection . COMPARISON STUDY: No previous studies for comparison. CT DOSE: 614.27 mGy.cm TECHNIQUE: Helical axial images of the head were obtained without IV contrast. Automated exposure control was utilized for the study. A dose lowering technique was utilized adhering to the principles of ALARA. FINDINGS: No acute intracranial hemorrhage, midline shift or mass effect is present. Mild white matter hypodensities suggest small vessel disease. The ventricular system is unremarkable. The basal cisterns are patent. No extra- axial collections are present. There are no findings to suggest acute dural sinus thrombosis or acute territorial infarct. No significant calvarial abnormalities are present. Visualized portions of the sinuses and mastoid air cells are clear. IMPRESSION: No acute intracranial findings. ACT 112: Negative or not required by law. Electronically signed by: Juan Zhou M.D. 05/07/2022 4:23 PM Brain MRI 05/07/22 21:07 MRI OF THE BRAIN WITHOUT CONTRAST CLINICAL HISTORY: Stroke like symptoms COMPARISON STUDY: Head CT performed earlier today. TECHNIQUE: Utilizing a 1.5 [place] magnet and dedicated coil, multiplanar, multiecho imaging of the brain was performed without IV contrast. FINDINGS: There are no foci of restricted diffusion to suggest acute infarct. No acute intracranial hemorrhage, midline shift or mass effect is present. Mild atrophy is noted. White matter T2 hyperintense foci suggest moderate small vessel disease. No intracranial masses are identified on this unenhanced exam. Flow-voids for the major intracranial vessels are present. Coronal FLAIR sequence is mildly compromised by motion artifact. Calvarial signal is normal. There is no evidence for sinusitis. There is no mastoid fluid. IMPRESSION: No acute intracranial findings. ACT 112: Negative or not required by law. Electronically signed by: Juan Zhou M.D. 05/08/2022 10:31 AM Carotid Doppler Study 05/07/22 21:07 BILATERAL CAROTID DOPPLER STUDY HISTORY: stroke like symptoms COMPARISON: None. TECHNIQUE: Real-time, grayscale, and color Doppler sonography of the carotid arteries was performed. Imaging reviewed in the transverse and longitudinal planes. All measurements were calculated based on NASCET criteria. FINDINGS: Antegrade flow is seen in the bilateral vertebral arteries. Focal area of moderate noncalcified/soft plaque within the left carotid bulb resulting in 50% stenosis. The peak systolic velocity within the right ICA is 42 cm/s. The right systolic ratio is 0.6. The peak systolic velocity within the left ICA is 69 cm/s. The left systolic ratio is 1. IMPRESSION: 1. A focal area of noncalcified/soft plaque within the left carotid bulb resulting in 50% stenosis. 2. No significant stenosis within the right carotid arteries. ACT 112: Negative or not required by law. Electronically signed by: Magno Benjamin M.D. 05/08/2022 12:03 PM Chest X-Ray 05/08/22 09:15 XR chest 1V portable CLINICAL HISTORY: Wheezing. COMPARISON STUDY: Chest radiograph March 11, 2018. FINDINGS: Lung volumes are normal. There is no consolidation to suggest pneumonia. Linear left basilar opacity favors atelectasis. There is no pneumothorax or pleural effusion. Cardiac size is normal. Mediastinal contours are normal. There is no evidence for pulmonary edema. IMPRESSION: No acute cardiopulmonary findings. ACT 112: Negative or not required by law. Electronically signed by: Juan Zhou M.D. 05/08/2022 10:03 AM Ordered Studies 05/07/22 15:58 CT head/brain wo con Stat 05/07/22 21:07 MR brain wo con Routine US carotid doppler BI Routine Hospital Course (1) Acute confusion: Stroke like symptoms Transient confusion--DD: Hypertensive encephalopathy, TIA Not a candidate for tPA- Not indicated as symptoms resolved --CT head: showed no acute pathology --MRI Brain:No acute intracranial findings. --Carotid Doppler: A focal area of noncalcified/soft plaque within the left carotid bulb resulting in 50% stenosis. No significant stenosis within the right carotid arteries. --ECHO: Mild concentric LVH. EF 60 to 65%. No segmental left ventricle wall motion abnormality. Grade 1 diastolic dysfunction. No significant valvular pathology. Interatrial septum is intact with no evidence of ASD. No interatrial shunt. Mild aortic root dilatation. -- HbA1c 5.7 --LDL 58 --Normal TSH, Vit B12 Speech therapy eval Continue Aspirin 81 mg daily Neuro checks Consider neurology evaluation as outpatient PT/OT eval Fall precautions Minimize benzodiazepines as able to minimize delirium Delirium precautions Patient/family not interested to Rehab, Prefers home with Hypertensive urgency Continue metoprolol, Benazepril Added amlodipine 5 mg daily IV hydralazine as needed ECHO as above Dehydration Mild leukocytosis Held Amiloride while hospitalization Received gentle IV fluids Bladder scan as needed Leukocytosis resolved Mild troponin elevation Likely demand ischemia secondary to hypertensive urgency Troponin trended Less likely ACS Echo showed no wall motion abnormality Denies chest pain, dyspnea COPD No signs of exacerbation Continue home trilogy H/O pulmonary nodules As per records Follow-up as outpatient BERNARDO CPAP at CKD III Baseline creatinine ~ 1.8 Cr at baseline Monitor renal function Follows with [facility] nephrology Past tobacco use disorder Quit smoking 1 month ago H/O panic disorder Ativan as needed DVT Px: Heparin SQ Code Status Full Code Disposition Home with Total Time Total Time Spent Total Time Spent (In Minutes): 48 minutes Discharge Plan Discharge Items Patient Disposition: Home - Home Health Services Reason For Visit: ALTERED MENTAL STATUS Discharge Diagnosis: Hypertensive encephalopathy Possible transient ischemic attack Hypertensive urgency Activity: Per Instructions section Exercise/Sports: Gradually increase as tolerated Non-emergency contact: Primary Care Provider and Neurologist Call non-emergency contact if: you have any medication questions, your symptoms worsen, your pain is concerning for you and you have a fever Follow-up/Referrals: Laverne Rodriguez, [Primary Care Provider] - Diet: Heart Healthy Addtl Attending Provider Instructions: Follow-up with your primary physician Dr. Rodriguez in 1 week Consider being evaluated by your neurologist in 3 to 4 weeks. --- Monitor your blood pressure regularly at home. Discussed with your physician for further adjustment of medications for blood pressure as needed. Seek immediate medical attention if your symptoms reoccur or worsen Please take all medications as instructed on discharge list below. Please call if you have any questions or problems. You can reach a [facility] hospitalist on duty at [facility] 24 hours a day by calling [phone] Risk Factors for Stroke: You can reduce your chances of stroke by working with your medical provider to adopt a healthy lifestyle. Some specific ways to lower your chance of stroke are: * If you are a smoker, now is the time to stop smoking cigarettes * If you are diabetic, improve the control of your blood sugars * Avoid excessive amounts of alcohol * Control high blood pressure * Lose weight if you are overweight * Be sure to lead an active lifestyle * Eat a healthy diet low in salt, cholesterol and fat You should know about other risk factors for stroke that you are unable to control. These include: * Age 55 years or older * Male gender * Certain racial groups: , or / * Family History of Stroke, Mini stroke or Heart Attack * Sickle Cell Disease Follow Up: It is important for you to keep your follow up appointments with your medical provider. Who to Call and When: Medical Emergencies: Call 911 immediately if you experience any of the following warning signs and symptoms of Stroke: * Sudden numbness or weakness of the face, arm or leg, especially on one side of the body * Sudden confusion, trouble speaking or understanding * Sudden trouble seeing in one or both eyes * Sudden trouble walking, dizziness, loss of balance or coordination * Sudden severe headache with no cause Do not delay calling 911 if you experience any warning signs or symptoms of a stroke. Delay in seeking medical attention may affect what treatments can be given to you. . Pending Studies at Discharge: No Stand-Alone Forms: My [facility], Smoking Cessation Medications and DC Order Prescriptions: New amlodipine [Norvasc] 5 mg Tablet 5 mg PO QAM Qty: 30 1RF aspirin 81 mg Tablet,Delayed Release (Dr/Ec) 81 mg PO QAM Qty: 30 1RF Continued metoprolol succinate [Toprol XL] 50 mg Tablet Extended Release 24 Hr 50 mg PO QPM Multiple Vitamin-Minerals Tablet 1 tab PO DAILY Rx Instructions: pediatric [id number] chew benazepril 40 mg tablet 40 mg PO DAILY gabapentin 100 mg capsule 100 mg PO TID bupropion HCl 150 mg tablet sustained-release 12 hr 150 mg PO BID amiloride 5 mg tablet 5 mg PO QAM fluticasone propionate [Flonase] 50 mcg/actuation [place],Suspension 2 spray INTRANASAL QPM Rx Instructions: administer into each nostril cholecalciferol (vitamin D3) [Vitamin D3] 50 mcg (2,000 unit) Capsule 50 mcg PO DAILY Trelegy Ellipta 100-62.5-25 mcg blister with device 1 inh INHALATION DAILY lorazepam 0.5 mg Tablet 0.5 mg PO TID PRN (Reason: Panic Attack(S)) cholestyramine (with sugar) 4 gram powder in packet 1 ea PO BID PRN (Reason: Diarrhea) Discharge Orders: Discharge Order (Routine); Ordered 05/09/22 Ordered By: Slava Bosch Admission Data Admit Date/Time: 05/07/22 18:52 Attending Provider: Slava Bosch Admit Provider: Slava Bosch Primary Care Provider: Laverne Rodriguez Other Providers: Slava Bosch
[2022-05-09] MEDS ORDERED: MECLIZINE 12.5 MG TAB PO PRN (12:58)
== END 2022-05-09 16:45 | disposition home health service (06) | DRG 78 ==
LOC: ED 15:09 → 2S 18:52